=== PATIENT | male | born 1935 | race Caucasian/White ===

== ENCOUNTER 2017-11-13 07:17 | Inpatient (IN) | payer MEDICARE, BC ==
[2017-11-12 13:41] LABS: BASOPHILS # (AUTO) 0.1 (0.0-0.1); BASOPHILS % 0.6 % (0.0-1.0); EOSINOPHILS # (AUTO) 0.2 (0.0-0.4); EOSINOPHILS % 2.1 % (0.0-6.0); HEMATOCRIT 29.9 % (38.2-49.6); HEMOGLOBIN 9.8 g/dL (14.0-18.0); LYMPHOCYTES # (AUTO) 2.5 (1.0-3.2); LYMPHOCYTES % 25.6 % (18.0-39.1); MEAN CORPUSCULAR HEMOGLOBIN 29.7 pg (28-32); MEAN CORPUSCULAR HGB CONC 32.8 g/dL (31-35); MEAN CORPUSCULAR VOLUME 90.6 fL (81-99); MONOCYTES % 10.6 % (4.4-11.3); NEUTROPHILS # (AUTO) 5.9 (2.1-6.9); NEUTROPHILS % 60.8 % (38.7-80.0); PLATELET COUNT 304 x10e3/uL (140-360); RED CELL DISTRIBUTION WIDTH 14.9 % (11.7-14.4)
[2017-11-12 14:02] LABS: ALBUMIN 3.9 g/dL (3.5-5.0); ALBUMIN/GLOBULIN RATIO 1.1 (0.8-2.0); ANION GAP 16.8 mmol/L (8-16); CALCIUM 11.1 mg/dL (8.4-10.2); CREATININE, SERUM 4.97 mg/dL (0.72-1.25); POTASSIUM 4.8 mmol/L (3.5-5.1)
[2017-11-13] VITALS (14 sets, daily range): BP systolic 173–217; BP diastolic 78–101
[~2017-11-13] VITALS: Ht 175.3 cm; Wt 79.6 kg
[~2017-11-13 07:17] MED LIST: ATORVASTATIN CA20 MG PO; AURYXIA PO; CALCITRIOL0.25 MCG PO; CATAPRES-TTS 31 EA TD; CEFTIN250 MG PO; CLONIDINE HCL0.1 MG PO; COUMADIN2 MG PO; FUROSEMIDE40 MG PO; GABAPENTIN100 MG; HYDRALAZINE HCL25 MG PO; ISOSORBIDE MONO20 MG PO; LEVAQUIN250 MG PO; LEVOTHYROXINE50 MCG PO; METOPROLOL SUCC25 MG PO; METOPROLOL TART25 MG PO; MYBETRIQ PO; NIFEDICAL XL30 MG PO; NIFEDICAL XL60 MG PO; NIFEDIPINE ER30 M1 PO; PANTOPRAZOLE SO40 MG PO; POTASSIUM CHLO20 ME1 PO; PROZAC40 MG PO; RANEXA500 MG PO; RENA-VITE RX T1 EACH PO; RENADYL PO; TAMSULOSIN HCL0.4 MG PO; TORSEMIDE10 MG PO; ULTRAM50 MG PO; VITAMIN D1000 UNI1 PO; Z.0.ALDACTONE50 MG PO; Z.0.AMLODIPINE BESY1 PO; Z.0.CLONIDINE HCL0.2 PO; Z.0.FLOMAX0.4 MG PO; Z.0.IMDUR60 MG PO; Z.0.KLOR-CON M2020 M PO; Z.0.LASIX20 MG PO; Z.0.LASIX40 MG PO; Z.0.LIPITOR40 MG PO; Z.0.LISINOPRIL2.5 MG PO; Z.0.LISINOPRIL20 MG PO; [UNRECOGNIZED DRUG - OTHER] PO
[2017-11-13] MEDS ORDERED: SODIUM CHLORIDE 0.9% 1000ML 1,000 ML ONE ×2 (07:38→12:04)
[2017-11-13] MEDS ORDERED: DIPHENHYDRAMINE HCL 25 MG CAP ONE (07:51)
[2017-11-13] MEDS ORDERED: ALPRAZOLAM 0.5 MG TAB ONE (07:51)
[2017-11-13] MEDS ORDERED: IOPAMIDOL 370 MG/ML 200 ML INFUS..BTL INJ ONE (11:59)
[2017-11-13] MEDS ORDERED: LIDOCAINE HCL 2% LOCAL 20 ML VIAL ONE (11:59)
[2017-11-13] MEDS ORDERED: HEPARIN SOD/SOD CHLORIDE 2,000 ML ONE (11:59)
[2017-11-13] MEDS ORDERED: HYDRALAZINE HCL 20 MG/ML VIAL ONE ×2 (12:22→12:28)
[2017-11-13] MEDS ORDERED: FENTANYL CITRATE/PF 100MCG/2 ML INJ ONE (12:35)
[2017-11-13] MEDS ORDERED: MIDAZOLAM HCL 2 MG/2 ML VIAL ONE (12:35)
[2017-11-13] MEDS ORDERED: CLONIDINE HCL 0.3MG/24 HR PATCH TD SCH (15:15)
[2017-11-13] MEDS: CLONIDINE HCL 0.1 MG TAB PO SCH (15:19)
[2017-11-13] MEDS: HYDRALAZINE HCL 25 MG TAB PO SCH (15:19)
[2017-11-13] MEDS: NIFEDIPINE CR 30 MG TAB PO SCH (15:21)
[2017-11-13] MEDS ORDERED: WARFARIN SOD 2 MG TAB PO SCH (17:00)
[2017-11-13] MEDS: FUROSEMIDE 40 MG TAB PO SCH (17:00)
[2017-11-13] MEDS ORDERED: NIFEDIPINE 60 MG PO SCH (17:00)
[2017-11-13] MEDS: METOPROLOL TARTRATE 25 MG TAB PO SCH (17:03)
[2017-11-13] MEDS: RANOLAZINE 500 MG TABSR PO SCH (17:04)
[2017-11-13] MEDS ORDERED: ONDANSETRON HCL INJ 2 MG/ML VIAL IV PRN (17:30)
[2017-11-13 17:31] LABS: INR 0.97; PROTHROMBIN TIME 13.8 seconds (11.9-14.5)
[2017-11-13] MEDS ORDERED: FLUOXETINE HCL 40 MG PO SCH (21:00)
[2017-11-13] MEDS ORDERED: NON-FORMULARY MEDICATION (Atorvastatin Calcium (Lipitor) 40 MG) PO SCH (21:00)
[2017-11-13] MEDS: AMPICILLIN SOD 1 GM/NS 50ML 1 G in AMPICILLIN SOD 1 GM/NS 50ML 50 ML IV SCH (21:42)
[2017-11-13] MEDS: ATORVASTATIN 40 MG TAB PO SCH (21:42)
[2017-11-13] MEDS: TAMSULOSIN HCL 0.4 MG CAP PO SCH (21:42)
[2017-11-13] MEDS: FLUOXETINE HCL 20 MG CAP PO SCH (21:42)
--- NOTE | 2017-11-13 23:07 | History and Physical ---
HISTORY OF PRESENT ILLNESS: This patient came into the hospital today for a cardiac cath. He has history of chronic kidney disease. The patient underwent a cath by Dr. Dinero. The patient's initial Lexiscan was abnormal with systolic dysfunction and large inferior transmural scar. The patient's cardiac cath did not reveal any significant pathology, did have chronic coronary artery disease and diffuse plaquing present. No stenting was done. The patient also has a history of bladder cancer taken care of by Dr. Meredith, and today, the patient is readmitted for acute kidney injury and also for history of cancer, possible scope tomorrow. The patient has history of hypertension, history of depression, history of hypothyroidism, history of BPH and history of atrial fibrillation. MEDICATIONS: Atorvastatin 40 mg, fluoxetine 40 mg, Lasix 40 mg, hydralazine 25 mg, 100 mg twice a day, isosorbide mononitrate 20 mg, levothyroxine 50, metoprolol 25, nifedipine 60, pantoprazole 40 mg, potassium chloride 20, Ranexa 500 mg, tamsulosin 0.4 mg and warfarin 2 mg daily, 6 mg daily. The patient also has a history of vasectomy with radiation, again bladder surgery and cataract surgery too. FAMILY HISTORY: History of colon cancer in mother and also history of hypertension in father. PHYSICAL EXAMINATION GENERAL: The patient is alert and oriented x3. HEENT: Normocephalic, atraumatic. Pupils react to light and accommodation. The patient is lying supine status post cath. LUNGS: Clear to auscultation. ABDOMEN: Nontender, nondistended. EXTREMITIES: No cyanosis, clubbing or edema. LABORATORY DATA: Initial white count was 9.7. Hemoglobin was 9.8, hematocrit 29.9. Chemistries: Sodium 136, BUN 39, creatinine 4.8 and . Coags: PT 13.8 and INR of 0.97. ASSESSMENT: The patient with acute kidney injury. Nephrology consult is done. Also, history of bladder cancer. Scheduled for urological procedure tomorrow. Will continue to monitor the patient. Restart his home medications. Will hold his warfarin for possible procedure tomorrow. Further recommendations depending on clinical course. Have consulted Dr. Gandhi for his acute kidney injury. Will check his BMP tomorrow and also his creatinine tomorrow. Further recommendations depending on clinical course. Job#: [id number] SPIKE
[2017-11-14] VITALS (9 sets, daily range): BP systolic 121–176; BP diastolic 61–84
--- NOTE | 2017-11-14 00:36 | Consultation ---
DATE OF CONSULTATION: November 13, 2017 This is an 82-year-old male who was admitted for a cardiac cath and he underwent cath by Dr. Dinero, did not reveal any significant pathology. The patient has history of bladder cancer and is being followed by Dr. Meredith. The patient has multiple polyps. The patient will be having procedure tomorrow. While he is here, the patient was found to have worsening of his kidney function with a creatinine up to 4.8 with a baseline of 2.47 in August. MEDICATIONS: Fluoxetine, Lasix, atorvastatin, hydralazine, isosorbide, Protonix, nifedipine, metoprolol, levothyroxine, Ranexa, tamsulosin, and Coumadin. FAMILY HISTORY: Colon cancer in mother, hypertension in father. PAST MEDICAL HISTORY 1. Hypothyroidism. 2. Bladder cancer. 3. Chronic coronary artery disease. 4. Chronic kidney disease stage 3 with a creatinine of 2.47 baseline. 5. Hyperlipidemia. 6. Hypertension. 7. BPH. 8. UTI. PAST SURGICAL HISTORY 1. Vasectomy with radiation. 2. Bladder surgery. 3. Cataract surgery. PHYSICAL EXAMINATION GENERAL: Alert, following commands. HEENT: Pupils equal and reactive to light and accommodation. NECK: No JVD, no bruit. LUNGS: No rhonchi, no rales. HEART: Regular rate and rhythm. No S3, no S4. ABDOMEN: Nontender, nondistended. No hepatosplenomegaly. EXTREMITIES: No clubbing, cyanosis, or edema. NEUROLOGICAL: Cranial nerves II through XII are grossly intact. Sensation is intact. Motor is intact. VITAL SIGNS: Blood pressure 173/78. LABS: White count 9.7, hemoglobin 9.8, and hematocrit 29.9. Sodium 136, potassium 4.8, chloride 104, BUN 89, creatinine 4.97, and calcium 11.1. ASSESSMENT AND PLAN 1. Acute kidney failure with increased creatinine at 4.97, baseline of 2.47. We will check urinalysis for urinary tract infection. Patient has a history of frequent urinary tract infections. Also we will check urine eosinophil to rule out interstitial nephritis. To note that the patient is at a high risk for contrast nephropathy. He just had a cardiac catheterization done today with a creatinine of above 2 which makes him high risk. So, for now, I will continue intravenous fluids and we will check a urinalysis in a.m. 2. Bladder polyps. The patient is scheduled for procedure in a.m. 3. Hypertension. Patient is just restarted on his home medications. We will reevaluate, might increase medications. 4. Anemia of chronic disease. We will check urine protein electrophoresis. Job#: [id number]
[2017-11-14] MEDS: LEVOTHYROXINE SODIUM 50 MCG TAB PO SCH (05:12)
[2017-11-14 05:22] LABS: BASOPHILS % 0.4 % (0.0-1.0); EOSINOPHILS # (AUTO) 0.2 (0.0-0.4); EOSINOPHILS % 1.7 % (0.0-6.0); HEMATOCRIT 31.1 % (38.2-49.6); HEMOGLOBIN 10.1 g/dL (14.0-18.0); LYMPHOCYTES # (AUTO) 1.7 (1.0-3.2); LYMPHOCYTES % 15.7 % (18.0-39.1); MEAN CORPUSCULAR HEMOGLOBIN 29.4 pg (28-32); MEAN CORPUSCULAR HGB CONC 32.5 g/dL (31-35); MEAN CORPUSCULAR VOLUME 90.7 fL (81-99); MONOCYTES # (AUTO) 1.3 (0.2-0.8); MONOCYTES % 12.2 % (4.4-11.3); NEUTROPHILS # (AUTO) 7.5 (2.1-6.9); NEUTROPHILS % 69.6 % (38.7-80.0); PLATELET COUNT 282 x10e3/uL (140-360); RED BLOOD COUNT 3.43 x10e6/uL (4.3-5.7); RED CELL DISTRIBUTION WIDTH 14.9 % (11.7-14.4)
[2017-11-14 05:49] LABS: INR 0.98; PROTHROMBIN TIME 13.9 seconds (11.9-14.5)
[2017-11-14 05:54] LABS: ANION GAP 15.3 mmol/L (8-16); CALCIUM 10.4 mg/dL (8.4-10.2); CREATININE, SERUM 4.15 mg/dL (0.72-1.25); POTASSIUM 4.3 mmol/L (3.5-5.1)
[2017-11-14] MEDS ORDERED: IOPAMIDOL 610MG/1ML 300 MG/ML VIAL IV ONE (06:48)
[2017-11-14] MEDS: AMPICILLIN SOD 1 GM/NS 50ML 1 G in AMPICILLIN SOD 1 GM/NS 50ML 50 ML IV SCH ×3 (08:31→20:32)
--- NOTE | 2017-11-14 08:33 | Operative Report ---
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 PROCEDURES PERFORMED: 1. Left heart catheterization. 2. Selective coronary angiography. COMPLICATIONS: None. CONTRAST USED: 10 mL. RECOMMENDATIONS: Aggressive hydration for chronic kidney disease. The patient is cleared from the cardiac standpoint for any surgical procedure. Access obtained in the right femoral artery. A 6-Russian sheath was placed. Diagnostic coronary angiogram revealed 50% left main stenosis. Left anterior descending, circumflex, right coronary artery had moderate diffuse 30% to 50% stenosis without any critical stenosis or occlusions. Total 10 mL of contrast was used due to patient's advanced chronic kidney disease. Right groin sheath was removed under manual pressure. Patient was admitted to the hospital for IV hydration. Job#: [id number]
[2017-11-14] MEDS ORDERED: HYDRALAZINE HCL 20 MG/ML VIAL ONE (08:55)
[2017-11-14] MEDS ORDERED: POTASSIUM CHLORIDE 20 MEQ TAB CR PO SCH (09:00)
[2017-11-14] MEDS ORDERED: NON-FORMULARY MEDICATION (Vit B Cmplx 3/Fa/Vit C/Biotin (Rena-Vite Rx Tablet) 1 TAB) PO SCH (09:00)
[2017-11-14] MEDS: MYBETRIQ 50 MG PO SCH (09:00)
[2017-11-14] MEDS ORDERED: MYBETRIQ 50 MG PO SCH (09:00)
[2017-11-14] MEDS ORDERED: LEVOTHYROXINE SODIUM 50 MCG TAB PO SCH (09:00)
[2017-11-14] MEDS ORDERED: ISOSORBIDE MONONITRATE 20 MG TAB PO SCH (09:00)
[2017-11-14] MEDS ORDERED: CALCITRIOL 0.25 MCG CAP PO SCH (09:00)
[2017-11-14] MEDS ORDERED: TRAMADOL HCL 50 MG TAB PO PRN (10:15)
[2017-11-14] MEDS: FOLIC ACID/CYANOCOB/PYRIDOXINE TAB PO SCH (10:35)
[2017-11-14] MEDS: CALCITRIOL 0.25 MCG CAP PO SCH (10:35)
[2017-11-14] MEDS: RANOLAZINE 500 MG TABSR PO SCH ×2 (10:35→16:59)
[2017-11-14] MEDS: HYDRALAZINE HCL 25 MG TAB PO SCH (10:35)
[2017-11-14] MEDS: PANTOPRAZOLE SOD 40 MG TABEC PO SCH (10:35)
[2017-11-14] MEDS: ISOSORBIDE MONONITRATE 30 MG TAB CR PO SCH (10:36)
[2017-11-14] MEDS: METOPROLOL TARTRATE 25 MG TAB PO SCH (10:37)
[2017-11-14] MEDS: CLONIDINE HCL 0.1 MG TAB PO SCH ×2 (10:37→17:00)
[2017-11-14] MEDS: NIFEDIPINE CR 30 MG TAB PO SCH ×2 (10:38→17:01)
[2017-11-14] MEDS: CHOLECALCIFEROL 1,000 UNIT TAB PO SCH (10:38)
[2017-11-14] MEDS: FUROSEMIDE 40 MG TAB PO SCH ×2 (10:42→16:59)
[2017-11-14] MEDS ORDERED: PHENAZOPYRIDINE HCL 100 MG TAB PO SCH ×2 (13:00→21:00)
--- NOTE | 2017-11-14 13:09 | Progress Note ---
DATE: November 14, 2017 CARDIOLOGY PROGRESS NOTE SUBJECTIVE: Patient denies chest pain or shortness of breath. He underwent cystoscopy today by Dr. Meredith. OBJECTIVE VITAL SIGNS: Temperature 97.1 degrees, pulse 70, respiratory rate 21, blood pressure 176/84, oxygen saturation 96% on room air. GENERAL: Awake, alert, in no acute distress. LUNGS: Clear to auscultation bilaterally. No wheezes or crackles. CARDIOVASCULAR: Normal rate, regular rhythm. No murmur. Normal S1 and S2. ABDOMEN: Soft, nontender. EXTREMITIES: No edema. Right groin without hematoma or bruit. LABS: WBC 10.75, hemoglobin 10.1, hematocrit 31.1, platelets 282. Sodium 140, potassium 4.3, chloride 108, CO2 21, BUN 69, creatinine 4.15. INR 0.98. TELEMETRY: Normal sinus rhythm. IMPRESSION 1. Acute kidney injury. 2. Paroxysmal atrial fibrillation. 3. Chronic systolic heart failure. 4. Pulmonary hypertension. 5. Coronary artery disease with cardiac catheterization revealing moderate coronary artery disease without indication for revascularization. 6. Bladder tumors. RECOMMENDATIONS: Continue current cardiac medications. Patient is hypertensive. Change patient to carvedilol given continued hypertension. No RAFA/ARB given acute kidney injury. Continue current cardiac medications otherwise. Thank you for this consult. We will continue to follow. Job#: [id number] KAT
[2017-11-14] MEDS ORDERED: HYDRALAZINE HCL 25 MG TAB PO SCH (15:00)
[2017-11-14] MEDS: HYDRALAZINE HCL 100 MG TABLET PO SCH ×2 (15:51→20:32)
[2017-11-14] MEDS: CARVEDILOL 12.5 MG TAB PO SCH (17:00)
[2017-11-14] MEDS ORDERED: PROPOFOL IV EMULSION 10 MG/ML 20 ML VIAL ONE (17:42)
[2017-11-14] MEDS ORDERED: LIDOCAINE HCL 2% LOCAL INJ 5 ML SDV VIAL INJ ONE (17:42)
[2017-11-14] MEDS ORDERED: DESFLURANE 240 ML BTL INH ONE (17:42)
[2017-11-14] MEDS ORDERED: DEXAMETHASONE SOD PHOS INJ 4 MG/ML VIAL ONE (17:42)
[2017-11-14] MEDS: FLUOXETINE HCL 20 MG CAP PO SCH (20:32)
[2017-11-14] MEDS: ATORVASTATIN 40 MG TAB PO SCH (20:32)
[2017-11-14] MEDS: TAMSULOSIN HCL 0.4 MG CAP PO SCH (20:32)
[2017-11-15] VITALS (7 sets, daily range): BP systolic 117–176; BP diastolic 58–79
[2017-11-15 04:17] LABS: BILIRUBIN,URINE 1+ (NEGATIVE); CLARITY,URINE TURBID (CLEAR); COLOR,URINE AMBER (YELLOW); KETONES,URINE NEGATIVE (NEGATIVE); LEUKOCYTE ESTERASE ,URINE TRACE (NEGATIVE); NITRITE,URINE POSITIVE (NEGATIVE); PROTEIN,URINE DIPSTICK 3+ (NEGATIVE); URINE UROBILINOGEN 0.2 mg/dL (0.2 - 1)
[2017-11-15 04:18] LABS: BACTERIA,URINE MODERATE /HPF; RBC,URINE >50 /HPF (0-5)
[2017-11-15 04:40] LABS: CREATININE,URINE RANDOM 89.39 mg/dL (63-166); SODIUM,URINE 27 mmol/L; TOTAL PROTEIN, URINE 196.3 mg/dL (1-14)
[2017-11-15 04:51] LABS: EOSINOPHIL SMEAR,URINE NONE SEEN (NONE SEEN)
[2017-11-15 05:31] LABS: BASOPHILS % 0.2 % (0.0-1.0); EOSINOPHILS # (AUTO) 0.1 (0.0-0.4); EOSINOPHILS % 0.9 % (0.0-6.0); HEMATOCRIT 28.4 % (38.2-49.6); HEMOGLOBIN 9.4 g/dL (14.0-18.0); LYMPHOCYTES % 15.5 % (18.0-39.1); MEAN CORPUSCULAR HEMOGLOBIN 30.3 pg (28-32); MEAN CORPUSCULAR HGB CONC 33.1 g/dL (31-35); MEAN CORPUSCULAR VOLUME 91.6 fL (81-99); MONOCYTES # (AUTO) 1.5 (0.2-0.8); MONOCYTES % 12.2 % (4.4-11.3); NEUTROPHILS # (AUTO) 8.9 (2.1-6.9); NEUTROPHILS % 70.8 % (38.7-80.0); PLATELET COUNT 269 x10e3/uL (140-360); RED CELL DISTRIBUTION WIDTH 14.8 % (11.7-14.4)
[2017-11-15] MEDS: LEVOTHYROXINE SODIUM 50 MCG TAB PO SCH (05:48)
[2017-11-15 05:49] LABS: ANION GAP 14.9 mmol/L (8-16); CALCIUM 10.2 mg/dL (8.4-10.2); CREATININE, SERUM 4.47 mg/dL (0.72-1.25); POTASSIUM 4.9 mmol/L (3.5-5.1)
[2017-11-15] MEDS: HYDRALAZINE HCL 100 MG TABLET PO SCH ×3 (08:55→21:21)
[2017-11-15] MEDS: FOLIC ACID/CYANOCOB/PYRIDOXINE TAB PO SCH (08:55)
[2017-11-15] MEDS: RANOLAZINE 500 MG TABSR PO SCH ×2 (08:55→17:07)
[2017-11-15] MEDS: NIFEDIPINE CR 30 MG TAB PO SCH ×2 (08:55→17:07)
[2017-11-15] MEDS: PANTOPRAZOLE SOD 40 MG TABEC PO SCH (08:55)
[2017-11-15] MEDS: MYBETRIQ 50 MG PO SCH (08:55)
[2017-11-15] MEDS: CLONIDINE HCL 0.1 MG TAB PO SCH ×2 (08:55→17:07)
[2017-11-15] MEDS: CALCITRIOL 0.25 MCG CAP PO SCH (08:55)
[2017-11-15] MEDS: CHOLECALCIFEROL 1,000 UNIT TAB PO SCH (08:55)
[2017-11-15] MEDS: ISOSORBIDE MONONITRATE 30 MG TAB CR PO SCH (08:55)
[2017-11-15] MEDS: CARVEDILOL 12.5 MG TAB PO SCH ×2 (08:55→17:07)
[2017-11-15] MEDS: AMPICILLIN SOD 1 GM/NS 50ML 1 G in AMPICILLIN SOD 1 GM/NS 50ML 50 ML IV SCH ×2 (08:55→21:21)
--- NOTE | 2017-11-15 12:21 | Progress Note ---
DATE: November 15, 2017 CARDIOLOGY PROGRESS NOTE SUBJECTIVE: Patient denies chest pain or shortness of breath. OBJECTIVE VITAL SIGNS: Temperature 97.6 degrees, pulse 61, respiratory rate 18, blood pressure 149/70, oxygen saturation 96% on room air. GENERAL: Elderly man in no acute distress. Awake and alert. LUNGS: Clear to auscultation bilaterally. No wheezes or crackles. CARDIOVASCULAR: Normal rate, regular rhythm. No murmur. Normal S1 and S2. ABDOMEN: Soft, nontender. EXTREMITIES: No edema. CARDIAC MEDICATIONS 1. Hydralazine 100 mg p.o. t.i.d. 2. Carvedilol 12.5 mg p.o. b.i.d. 3. Nifedipine 60 mg p.o. b.i.d. 4. Isosorbide mononitrate 60 mg p.o. daily. 5. Ranolazine 500 mg p.o. b.i.d. 6. Clonidine 0.1 mg p.o. b.i.d. 7. Levothyroxine 50 mcg p.o. daily. 8. Atorvastatin 40 mg p.o. nightly. LABS: WBC 12.61, hemoglobin 9.4, hematocrit 28.4, platelets 269. Sodium 138, potassium 4.9, chloride 107, CO2 21, BUN 69, creatinine 4.47. TELEMETRY: Sinus bradycardia. IMPRESSION 1. Acute kidney injury. 2. Paroxysmal atrial fibrillation. 3. Chronic systolic heart failure. 4. Pulmonary hypertension. 5. Coronary artery disease with cardiac catheterization revealing moderate coronary artery disease without indication for revascularization. 6. Bladder tumors. RECOMMENDATIONS: Continue current cardiac medications. Patient's blood pressure is acceptable for age. Hold RAFA/ARB due to acute kidney injury. The patient will need to be restarted on warfarin once cleared from a procedural standpoint. Continue monitoring the patient on telemetry and monitor volume status closely. Thank you for this consult. We will continue to follow. Job#: [id number]
[2017-11-15 13:04] LABS: ANISOCYTOSIS SLIGHT; HYPOCHROMASIA SLIGHT; LYMPHOCYTES % (MANUAL) 13 % (19-48); MONOCYTES % (MANUAL) 13 % (3.4-9.0); NEUTROPHILS % (MANUAL) 74 % (40-74); PLATELET ESTIMATE ADEQUATE; PLATELET MORPHOLOGY COMMENT NORMAL
[2017-11-15] MEDS: ATORVASTATIN 40 MG TAB PO SCH (21:21)
[2017-11-15] MEDS: TAMSULOSIN HCL 0.4 MG CAP PO SCH (21:21)
[2017-11-15] MEDS: FLUOXETINE HCL 20 MG CAP PO SCH (21:21)
[2017-11-16 00:44] VITALS: BP 150/70
[2017-11-16 04:00] VITALS: BP 148/69
[2017-11-16 05:55] LABS: BASOPHILS % 0.4 % (0.0-1.0); EOSINOPHILS # (AUTO) 0.4 (0.0-0.4); EOSINOPHILS % 3.7 % (0.0-6.0); HEMATOCRIT 27.1 % (38.2-49.6); HEMOGLOBIN 8.9 g/dL (14.0-18.0); LYMPHOCYTES # (AUTO) 1.8 (1.0-3.2); LYMPHOCYTES % 17.6 % (18.0-39.1); MEAN CORPUSCULAR HEMOGLOBIN 29.7 pg (28-32); MEAN CORPUSCULAR HGB CONC 32.8 g/dL (31-35); MEAN CORPUSCULAR VOLUME 90.3 fL (81-99); MONOCYTES # (AUTO) 1.2 (0.2-0.8); MONOCYTES % 11.5 % (4.4-11.3); NEUTROPHILS # (AUTO) 6.7 (2.1-6.9); NEUTROPHILS % 66.5 % (38.7-80.0); PLATELET COUNT 244 x10e3/uL (140-360); RED CELL DISTRIBUTION WIDTH 14.9 % (11.7-14.4)
[2017-11-16] MEDS: LEVOTHYROXINE SODIUM 50 MCG TAB PO SCH (06:04)
[2017-11-16 06:18] LABS: ANION GAP 13.7 mmol/L (8-16); CALCIUM 10.8 mg/dL (8.4-10.2); CREATININE, SERUM 4.55 mg/dL (0.72-1.25); POTASSIUM 4.7 mmol/L (3.5-5.1)
[2017-11-16] MEDS: CARVEDILOL 12.5 MG TAB PO SCH ×2 (08:39→16:54)
[2017-11-16] MEDS: ISOSORBIDE MONONITRATE 30 MG TAB CR PO SCH (08:39)
[2017-11-16] MEDS: MYBETRIQ 50 MG PO SCH (08:39)
[2017-11-16] MEDS: CLONIDINE HCL 0.1 MG TAB PO SCH ×2 (08:39→16:54)
[2017-11-16] MEDS: FOLIC ACID/CYANOCOB/PYRIDOXINE TAB PO SCH (08:39)
[2017-11-16] MEDS: HYDRALAZINE HCL 100 MG TABLET PO SCH ×2 (08:39→16:05)
[2017-11-16] MEDS: RANOLAZINE 500 MG TABSR PO SCH ×2 (08:40→16:54)
[2017-11-16] MEDS: PANTOPRAZOLE SOD 40 MG TABEC PO SCH (08:40)
[2017-11-16] MEDS: NIFEDIPINE CR 30 MG TAB PO SCH ×2 (08:40→16:54)
[2017-11-16] MEDS: CALCITRIOL 0.25 MCG CAP PO SCH (08:40)
[2017-11-16] MEDS: CHOLECALCIFEROL 1,000 UNIT TAB PO SCH (08:40)
[2017-11-16] MEDS ORDERED: SODIUM CHLORIDE 0.9% 50ML 50 ML ONE (09:26)
[2017-11-16 09:29] VITALS: BP 139/65
[2017-11-16] MEDS: AMPICILLIN SOD 1 GM/NS 50ML 1 G in AMPICILLIN SOD 1 GM/NS 50ML 50 ML IV SCH (09:31)
[2017-11-16 10:32] VITALS: BP 139/65
[2017-11-16 12:29] VITALS: BP 147/69
[2017-11-16] MEDS ORDERED: CLONIDINE HCL 0.3MG/24 HR PATCH TD SCH (15:17)
[2017-11-16 15:58] VITALS: BP 142/65
--- NOTE | 2017-11-17 06:39 | Progress Note ---
DATE: November 16, 2017 CARDIOLOGY PROGRESS NOTE SUBJECTIVE: Patient is without any complaints this morning. He states that he feels well. Denies any chest pain, shortness of breath, or palpitation. CARDIOVASCULAR MEDICATIONS: Nifedipine 60 mg p.o. b.i.d., Ranexa 500 mg p.o. b.i.d., hydralazine 100 mg p.o. t.i.d., Coreg 12.5 mg p.o. b.i.d., isosorbide 60 mg p.o. daily, clonidine 0.1 mg p.o. b.i.d., and atorvastatin 40 mg p.o. h.s. LABS: WBC 10.08, hemoglobin 8.9, hematocrit 27.1, platelets 244, sodium 140, potassium 4.7, BUN 71, creatinine 4.55, GFR 12, calcium 10.8, glucose 100. OBJECTIVE VITAL SIGNS: Temperature 98.2, pulse 59, respiratory rate 16, blood pressure 139/65, oxygen saturation 96% on room air. GENERAL: Alert and oriented x3, resting comfortably in bed, does not appear to be in any acute distress. NECK: Supple. No JVD noted. CARDIOVASCULAR: Irregular rate and rhythm. A 3/6 systolic murmur present. Normal S1, S2. LUNGS: Diminished breath sounds in posterior lower lobes. Anterior clear. Otherwise, no wheezing, rhonchi, or crackles noted. ABDOMEN: Rounded, soft, nontender. LOWER EXTREMITIES: Trace edema bilaterally. TELEMETRY: Sinus bradycardia. IMPRESSION 1. Acute chronic renal failure. 2. Paroxysmal atrial fibrillation. 1. Systolic heart failure. 2. Pulmonary hypertension. 3. Coronary artery disease, status post recent left heart cath revealing moderate coronary artery disease without indication for vascularization. 4. Bladder tumor. 5. Urinary tract infection. RECOMMENDATIONS: Continue the above cardiac medications. Hold RAFA or ARB due to kidney failure. We will need to reinstate warfarin once cleared from a procedure standpoint. We will discuss with urology. Continue to maintain this patient on telemetry. Nephrology is managing volume. Dictated by: Isabell Feldman NP Job#: [id number] LPA
[2017-11-19 13:18] LABS: ALPHA 2 GLOBULIN URINE PEP 8.6 % (.)
--- OUTSIDE RECORDS SUMMARY | 2017-11-26 09:41 | XMS REPORT | Summary of Care ---
Author Author [facility] Organization [facility] Address Unknown Phone Unavailable Encounter DANIELA Gould(ELIO) [id number] Date(s): 10/18/16 - 11/16/16 [facility] [address] [place] [address]- Discharge Disposition: Home or Self Care Attending Physician: Chencho Hinson MD Referring Physician: Chencho Hinson MD Vital Signs Most recent to 1 2 oldest [Reference Range]: Height 177.8 cm (10/17/16 2:03 PM) Temperature Oral 97.6 DegF 98.3 DegF [96.4-99.1 DegF] (11/01/16 1:34 PM) (10/18/16 1:10 PM) Blood Pressure 145/59 mmHg 169/68 mmHg [90-140/60-90 mmHg] *HI* *HI* (11/01/16 1:34 PM) (10/18/16 1:10 PM) Respiratory Rate 17 BRMIN 18 BRMIN [14-20 BRMIN] (11/01/16 1:34 PM) (10/18/16 1:10 PM) Peripheral Pulse 47 bpm 65 bpm Rate [60-100 bpm] *LOW* (10/18/16 1:10 PM) (11/01/16 1:34 PM) Weight 83.182 kg (10/17/16 2:03 PM) Body Mass Index 26.31 m2 (10/17/16 2:03 PM) Problem List No data available for this section Allergies, Adverse Reactions, Alerts Substance Reaction Severity Status codeine Active sulfa drugs Active Medications Feraheme + sodium chloride 0.9% 100 mL INJ (for IV set) 100 mL 510 mg, 17 mL, 468 ml/hr, Infuse Over: 15 minutes, Route: IVPB, 117, ONCALL, Sta rt date: 10/18/16 11:00:00 CDT, Duration: 12 hr, Stop date: 10/18/16 22:59:00 CD T Notes: Same as: FerahemeNon-FormularyDO NOT administer undiluted IVP. This agen t is reserved for use by Nephrologists in patients who are unable to tolerate or al therapy. MEDICATION WASTE Product Size: 510 mgProduct Wasted: ___ mg Start Date: 10/18/16 Stop Date: 10/18/16 Status: Completed Feraheme + sodium chloride 0.9% 100 mL INJ (for IV set) 100 mL 510 mg, 17 mL, 468 ml/hr, Infuse Over: 15 minutes, Route: IVPB, 117, ONCALL, Sta rt date: 11/01/16 11:00:00 CDT, Duration: 12 hr, Stop date: 11/01/16 22:59:00 CD T Notes: Same as: FerahemeNon-FormularyDO NOT administer undiluted IVP. This agen t is reserved for use by Nephrologists in patients who are unable to tolerate or al therapy. MEDICATION WASTE Product Size: 510 mgProduct Wasted: ___ mg Start Date: 11/01/16 Stop Date: 11/01/16 Status: Completed Results No data available for this section Immunizations No data available for this section Procedures No data available for this section Social History Social History Type Response Smoking Status Former smoker; Ready to change: Yes; Concerns about tobacco use in household: No; Exposure to Tobacco Smoke None; Cigarette Smoking Last 365 Days No; Reg Smoking Cessation Counseling Yes Assessment and Plan No data available for this section
--- OUTSIDE RECORDS SUMMARY | 2017-11-26 09:41 | XMS REPORT | Continuity of Care Document ---
Author Author [facility] Address Unknown Phone Unavailable Problems Problem Status Onset Date Classification Date Reported Comments Source FERAHEME 510 MG / [id number] / [id number] / D Active 09/27/2016 [facility] Medications Medication Details Route Status Patient Instructions Ordering Provider Order Date Source Feraheme + sodium chloride 0.9% 100 mL INJ (for IV set) 100 mL 510 mg, 17 mL, 468 ml/hr, Infuse Over: 15 minutes, Route: IVPB, 117, ONCALL, Start date: 11/01/16 11:00:00 CDT, Duration: 12 hr, Stop date: 11/01/16 22:59:00 CDTNotes: Same as: Feraheme Non-Formulary DO NOT administer undiluted IVP. This agent is reserved for use by Nephrologists in patients who are unable to tolerate oral therapy. MEDICATION WASTE Product Size: 510 mg Product Wasted: ___ mg Inactive 11/01/2016 [facility] Feraheme + sodium chloride 0.9% 100 mL INJ (for IV set) 100 mL 510 mg, 17 mL, 468 ml/hr, Infuse Over: 15 minutes, Route: IVPB, 117, ONCALL, Start date: 10/18/16 11:00:00 CDT, Duration: 12 hr, Stop date: 10/18/16 22:59:00 CDTNotes: Same as: Feraheme Non-Formulary DO NOT administer undiluted IVP. This agent is reserved for use by Nephrologists in patients who are unable to tolerate oral therapy. MEDICATION WASTE Product Size: 510 mg Product Wasted: ___ mg Inactive 10/18/2016 [facility] Allergies, Adverse Reactions, Alerts Substance Category Reaction Severity Reaction type Status Date Reported Comments Source codeine Assertion Drug allergy Active [facility] sulfa drugs Assertion Drug allergy Active [facility] Immunizations Immunization Date Given Site Status Last Updated Comments Source Results Order Name Results Value Reference Range Date Interpretation Comments Source Vital Signs Vital Sign Value Date Comments Source Temperature Oral (F) 97.6 F 11/01/2016 [facility] Respitory Rate 17 11/01/2016 [facility] Heart Rate 47 11/01/2016 [facility] Systolic (mm Hg) 145 11/01/2016 [facility] Diastolic (mm Hg) 59 11/01/2016 [facility] Heart Rate 65 10/18/2016 [facility] Respitory Rate 18 10/18/2016 [facility] Temperature Oral (F) 98.3 F 10/18/2016 [facility] Systolic (mm Hg) 169 10/18/2016 [facility] Diastolic (mm Hg) 68 10/18/2016 [facility] Height 177.8 cm 10/17/2016 [facility] Weight 83.182 10/17/2016 [facility] BMI Calculated 26.31 10/17/2016 [facility] Encounters Location Location Details Encounter Type Encounter Number Reason For Visit Attending Provider ADM Date DC Date Status Source [facility] Recurring [id number] Chencho Hinson 10/18/2016 11/17/2016 [facility] Procedures Procedure Code Date Perfomer Comments Source
--- NOTE | 2017-12-23 00:49 | Discharge Summary ---
This patient came in after a cardiac cath, was found to have hematuria. Consult with Dr. Meredith was done. Patient's primary care is Dr. Bradford. Also, a consult with Dr. Parra was done for history of chronic kidney disease, stage 4, his BUN is 16 and creatinine 4.15. Hemoglobin was 10.1 and 31.1. Serial regular H and H's were done to recheck his anemia. Patient's coronary artery disease was stable. The patient did have a cystoscopy with Dr. Meredith. was identified. UA C and S was done. Acute kidney injury was monitored on a regular basis. The patient's coronary artery disease was stable. After cystoscopy, the patient was discharged home. We made sure patient went home with a Servin and the patient went home with Servin. FINAL DIAGNOSES 1. Acute kidney injury. 2. Hematuria. 3. Coronary artery disease. 4. Hypertension. Patient was asked to follow up with his primary care physician and Dr. Bradford, and also, with Dr. Meredith for Servin care, and the patient also had minimal amount of leukocytosis while in the hospital. FINAL DIAGNOSES 1. Leukocytosis. 2. Anemia. 3. Chronic kidney injury and acute kidney injury. 4. Hematuria. For further information, look in the chart. For medicines on discharge, look in the medical reconciliation sheet. MONIQUE BEJARANO MD Job#: [id number] CQ
--- NOTE | 2018-01-15 22:42 | Operative Report ---
DATE OF PROCEDURE: November 14, 2017 PREOPERATIVE DIAGNOSES 1. Recurrent bladder cancer. 2. Urethral stricture disease. 3. Gross hematuria. POSTOPERATIVE DIAGNOSES 1. Recurrent bladder cancer. 2. Urethral stricture disease. 3. Gross hematuria. OPERATIONS PERFORMED: 1. Cystourethroscopy with bilateral ureteral catheterization and retrograde ureteropyelography. (separate procedure performed for the gross hematuria). 2. Interpretation of retrograde ureteropyelography. 3. Cystourethroscopy with calibration and dilation of ureteral stricture (separate procedure performed for the urethral stricture). 4. Cystourethroscopy with transurethral resection of large patch, larger than 5 cm, of numerous recurrent bladder tumors (separate procedure performed for the recurrent bladder cancer). ANESTHESIA: General. COMPLICATIONS: None. CLINICAL SUMMARY: Fabien Arauz is an 82-year-old man with multiple complex medical problems. The patient underwent heart catheterization and is brought to the operating room following cardiac optimization in order to manage his recurrent tumors that were diagnosed on office cystoscopy. He is aware of the risks of bleeding, infection, injury to adjacent structures, his increased risk of any anesthetic. He understood all these risks and elected to proceed. OPERATIVE PROCEDURE IN DETAIL: Informed consent was verified. Fabien Arauz was properly identified, taken to the operating room, placed on the cystoscopy table in the supine position. Anesthesia was uneventfully begun. The patient was then carefully and gently re-positioned in the dorsal lithotomy position with all pressure points well padded. His genitalia were prepared and draped in usual sterile fashion. The 22.5-Djiboutian cystoscope sheath with the visual obturator in place was atraumatically inserted into the patient's urethra. It was guided down the unremarkable distal urethra through the bulbar region, where there was a stricture noted. We calibrated the stricture to approximately 16-Djiboutian in size and dilated to 22.5-Djiboutian in size. Thus, we passed the patient's sphincteric bed and entered through the patient's open prostate bed and into the patient's bladder, where panendoscopy revealed numerous bladder tumors encompassing well over 5 cm of diameter range. There were small diverticulum noted and trabeculations noted as well. An 8-Djiboutian catheter was used cannulate each ureter and retrograde ureteropyelograms were performed. Interpretation of retrograde ureteropyelography: Contrast was instilled in retrograde fashion bilaterally. J-hooking was noted, but there were no tumors no stones and no diverticula. Unobstructed drainage was observed bilaterally fluoroscopically. Cold-cup biopsy forceps were utilized to sample most of these tumors and partially excise them. We then utilized the Bugbee electrode to vaporize and treat all remaining visible cancer. We then utilized the Bugbee to carefully coagulate all points of resection. At the end of our resection, no visible tumor was noted. The patient's bladder was drained with Servin catheter and patient was uneventfully reversed from anesthesia and taken to recovery room in stable condition. There were no complications to the procedure. Patient tolerated the procedure well. Estimated blood loss was minimal. Explicit postoperative instructions were given and will follow the patient up indefinitely. Job#: [id number] CQ
[2018-02-12] MEDS ORDERED: HYDRALAZIN20 MG/1 ML IV (09:19)
[2018-02-12] MEDS ORDERED: MERREM500 MG IV (09:19)
[2018-02-12] MEDS ORDERED: ASPIR 8181 MG PO (09:19)
[2018-02-12] MEDS ORDERED: ACETAMINOPHEN325 M1 PO (09:19)
[2018-02-12] MEDS ORDERED: ALBUTEROL0.63 MG/3 IH (09:19)
[2018-02-12] MEDS ORDERED: LORAZEPAM2 MG/1 M1 IVP (09:19)
[2018-02-12] MEDS ORDERED: IPRATROPIU0.2 MG/1 M NEB (09:19)
[2018-02-12] MEDS ORDERED: NEPRO CARB STE237 ML PO (09:19)
[2018-02-12] MEDS ORDERED: ONDANSETRON2 MG/1 ML IV (09:19)
[2018-02-12] MEDS ORDERED: ARANESP100 MCG/0. SC (09:19)
[2018-02-12] MEDS ORDERED: LACTULOSE20 GM/30 M PO (09:19)
[2018-02-12] MEDS ORDERED: HEPARIN SO1000 UNIT/ IV (09:19)
== END 2017-11-16 18:38 | disposition home health service (06) | DRG 669 ==
LOC: CATH LAB 07:17 → PACU V 13:02 → IMCU 14:08 → OBSVTOIN 11-14 15:52 → MED/SURG 11-14 17:24
PROVIDERS: ADMIT Family Medicine; ATTEND Family Medicine
PROC: 0TBB8ZX Excision of Bladder, Via Natural or Artificial Opening Endoscopic, Diagnostic (ICD-10-PCS; 2017-11-14)
PROC: 0T788ZZ Dilation of Bilateral Ureters, Via Natural or Artificial Opening Endoscopic (ICD-10-PCS; 2017-11-14)
PROC: BT141ZZ Fluoroscopy of Kidneys, Ureters and Bladder using Low Osmolar Contrast (ICD-10-PCS; 2017-11-14)
PROC: 4A023N7 Measurement of Cardiac Sampling and Pressure, Left Heart, Percutaneous Approach (ICD-10-PCS; principal; 2017-11-14 11:00)
PROC: B2111ZZ Fluoroscopy of Multiple Coronary Arteries using Low Osmolar Contrast (ICD-10-PCS; 2017-11-14 11:00)
DX: N17.9 Acute kidney failure, unspecified (principal); I50.22 Chronic systolic (congestive) heart failure; N39.0 Urinary tract infection, site not specified; C67.9 Malignant neoplasm of bladder, unspecified; I12.9 Hypertensive chronic kidney disease with stage 1 through stage 4 chronic kidney disease, or unspecified chronic kidney disease; I11.0 Hypertensive heart disease with heart failure; I48.0 Paroxysmal atrial fibrillation; E11.22 Type 2 diabetes mellitus with diabetic chronic kidney disease; N18.3 Chronic kidney disease, stage 3 (moderate); I25.10 Atherosclerotic heart disease of native coronary artery without angina pectoris; E78.5 Hyperlipidemia, unspecified; D63.8 Anemia in other chronic diseases classified elsewhere; Z79.01 Long term (current) use of anticoagulants; I27.20 Pulmonary hypertension, unspecified; Z79.52 Long term (current) use of systemic steroids; N40.1 Benign prostatic hyperplasia with lower urinary tract symptoms; N39.498 Other specified urinary incontinence; E03.9 Hypothyroidism, unspecified; N32.3 Diverticulum of bladder; R60.0 Localized edema; Z79.4 Long term (current) use of insulin
CPT/HCPCS: 36415; 51701; 74420; 80048; 80053; 81001; 81015; 82570; 84156; 84165; 84166; 84300; 85025; 85610; 87086; 88305; 93454; C1766; C1769; G0378; J0290; J0360; J1100; J2001; J2250; J2405; J7030; Q9967

== ENCOUNTER 2017-11-25 16:59 | Emergency (ER) | payer MEDICARE, BC ==
[~2017-11-25] VITALS: Ht 175.3 cm; Wt 79.4 kg
[2017-11-25 18:31] LABS: CLARITY,URINE SL CLOUDY (CLEAR); COLOR,URINE YELLOW (YELLOW); LEUKOCYTE ESTERASE ,URINE 1+ (NEGATIVE)
[2017-11-25 18:32] LABS: BILIRUBIN,URINE NEGATIVE (NEGATIVE); KETONES,URINE NEGATIVE (NEGATIVE); NITRITE,URINE NEGATIVE (NEGATIVE); PROTEIN,URINE DIPSTICK 2+ (NEGATIVE); URINE UROBILINOGEN 0.2 mg/dL (0.2 - 1)
[2017-11-25 18:49] LABS: BACTERIA,URINE MANY /HPF; RBC,URINE >50 /HPF (0-5); WBC,URINE (MAN) >50 /HPF (0-5)
[2018-02-12] MEDS ORDERED: ALBUTEROL0.63 MG/3 IH (09:19)
[2018-02-12] MEDS ORDERED: MERREM500 MG IV (09:19)
[2018-02-12] MEDS ORDERED: LORAZEPAM2 MG/1 M1 IVP (09:19)
[2018-02-12] MEDS ORDERED: HEPARIN SO1000 UNIT/ IV (09:19)
[2018-02-12] MEDS ORDERED: LACTULOSE20 GM/30 M PO (09:19)
[2018-02-12] MEDS ORDERED: HYDRALAZIN20 MG/1 ML IV (09:19)
[2018-02-12] MEDS ORDERED: NEPRO CARB STE237 ML PO (09:19)
[2018-02-12] MEDS ORDERED: ACETAMINOPHEN325 M1 PO (09:19)
[2018-02-12] MEDS ORDERED: ONDANSETRON2 MG/1 ML IV (09:19)
[2018-02-12] MEDS ORDERED: IPRATROPIU0.2 MG/1 M NEB (09:19)
[2018-02-12] MEDS ORDERED: ARANESP100 MCG/0. SC (09:19)
[2018-02-12] MEDS ORDERED: ASPIR 8181 MG PO (09:19)
== END 2017-11-25 19:09 | disposition home or self-care (01) ==
LOC: ER 16:59
DX: R33.9 Retention of urine, unspecified (principal); N30.91 Cystitis, unspecified with hematuria; I10 Essential (primary) hypertension; I25.10 Atherosclerotic heart disease of native coronary artery without angina pectoris; N18.9 Chronic kidney disease, unspecified; E03.9 Hypothyroidism, unspecified; Z85.46 Personal history of malignant neoplasm of prostate
CPT/HCPCS: 81001; 87086; 87186; 99283

== ENCOUNTER 2017-12-21 23:26 | Emergency (ER) | payer MEDICARE, BC ==
[~2017-12-21] VITALS: Ht 175.3 cm; Wt 79.4 kg
[2017-12-21] MEDS ORDERED: LIDOCAINE JELLY 2% 10ML URO-JET TOP ONE (23:45)
[2017-12-22 00:25] LABS: BASOPHILS # (AUTO) 0.1 (0.0-0.1); BASOPHILS % 0.5 % (0.0-1.0); EOSINOPHILS # (AUTO) 0.3 (0.0-0.4); EOSINOPHILS % 2.2 % (0.0-6.0); HEMATOCRIT 27.4 % (38.2-49.6); HEMOGLOBIN 8.8 g/dL (14.0-18.0); LYMPHOCYTES # (AUTO) 1.8 (1.0-3.2); LYMPHOCYTES % 12.8 % (18.0-39.1); MEAN CORPUSCULAR HEMOGLOBIN 28.9 pg (28-32); MEAN CORPUSCULAR HGB CONC 32.1 g/dL (31-35); MEAN CORPUSCULAR VOLUME 90.1 fL (81-99); MONOCYTES # (AUTO) 1.3 (0.2-0.8); MONOCYTES % 8.9 % (4.4-11.3); NEUTROPHILS # (AUTO) 10.5 (2.1-6.9); NEUTROPHILS % 75.2 % (38.7-80.0); PLATELET COUNT 505 x10e3/uL (140-360); RED BLOOD COUNT 3.04 x10e6/uL (4.3-5.7); RED CELL DISTRIBUTION WIDTH 16.3 % (11.7-14.4)
[2017-12-22 00:38] LABS: BILIRUBIN,URINE NEGATIVE (NEGATIVE); CLARITY,URINE CLOUDY (CLEAR); COLOR,URINE YELLOW (YELLOW); KETONES,URINE NEGATIVE (NEGATIVE); LEUKOCYTE ESTERASE ,URINE 1+ (NEGATIVE); NITRITE,URINE NEGATIVE (NEGATIVE); PROTEIN,URINE DIPSTICK 2+ (NEGATIVE); URINE UROBILINOGEN 0.2 mg/dL (0.2 - 1)
[2017-12-22 00:39] LABS: ALBUMIN 3.4 g/dL (3.5-5.0); ANION GAP 14.5 mmol/L (8-16); CALCIUM 11.7 mg/dL (8.4-10.2); CREATININE, SERUM 3.08 mg/dL (0.72-1.25); POTASSIUM 4.5 mmol/L (3.5-5.1)
[2017-12-22 00:49] LABS: RBC,URINE 21-50 /HPF (0-5); WBC,URINE (MAN) >50 /HPF (0-5)
[2017-12-22 00:50] LABS: BACTERIA,URINE MODERATE /HPF; EPITHELIAL CELLS,URINE FEW /LPF; RENAL EPITHELIAL CELLS,URINE FEW; TRANSITIONAL EPI CELLS,URINE FEW
[2017-12-22 01:04] VITALS: BP 141/62
[2018-02-12] MEDS ORDERED: ARANESP100 MCG/0. SC (09:19)
[2018-02-12] MEDS ORDERED: ACETAMINOPHEN325 M1 PO (09:19)
[2018-02-12] MEDS ORDERED: MERREM500 MG IV (09:19)
[2018-02-12] MEDS ORDERED: LORAZEPAM2 MG/1 M1 IVP (09:19)
[2018-02-12] MEDS ORDERED: ALBUTEROL0.63 MG/3 IH (09:19)
[2018-02-12] MEDS ORDERED: HYDRALAZIN20 MG/1 ML IV (09:19)
[2018-02-12] MEDS ORDERED: LACTULOSE20 GM/30 M PO (09:19)
[2018-02-12] MEDS ORDERED: IPRATROPIU0.2 MG/1 M NEB (09:19)
[2018-02-12] MEDS ORDERED: ASPIR 8181 MG PO (09:19)
[2018-02-12] MEDS ORDERED: ONDANSETRON2 MG/1 ML IV (09:19)
[2018-02-12] MEDS ORDERED: HEPARIN SO1000 UNIT/ IV (09:19)
[2018-02-12] MEDS ORDERED: NEPRO CARB STE237 ML PO (09:19)
== END 2017-12-22 01:29 | disposition home or self-care (01) ==
LOC: ER 23:26
DX: R33.9 Retention of urine, unspecified (principal); N30.91 Cystitis, unspecified with hematuria; N40.1 Benign prostatic hyperplasia with lower urinary tract symptoms
CPT/HCPCS: 36415; 51700; 80053; 81001; 85025; 87086; 99283

== ENCOUNTER 2018-01-12 05:42 | Inpatient (IN) | payer MEDICARE, BC ==
[~2018-01-12] VITALS: Ht 177.8 cm; Wt 77.2 kg
[2018-01-12] VITALS (26 sets, daily range): BP systolic 119–156; BP diastolic 65–90
[2018-01-12] MEDS ORDERED: MEROPENEM 1GRAM 1 GM in SODIUM CHLORIDE 0.9% 100 ML 100 ML IV STA (06:12)
[2018-01-12] MEDS ORDERED: VANCOMYCIN 1GM/NS 250 ML 250 ML IV ONE (06:20)
[2018-01-12] MEDS ORDERED: MYRBETRIQ50 MG PO (06:29)
[2018-01-12] MEDS ORDERED: FLUOXETINE HCL40 MG PO (06:29)
[2018-01-12] MEDS ORDERED: CALCITRIOL0.5 MCG PO (06:29)
[2018-01-12] MEDS ORDERED: RENA-VITE TABL0.8 MG PO (06:29)
[2018-01-12] MEDS ORDERED: MEROPENEM 1 GM VIAL ONE (06:35)
[2018-01-12] MEDS ORDERED: SODIUM CHLORIDE 0.9% 100 ML ONE (06:35)
--- NOTE | 2018-01-12 06:37 | Diagnostic Imaging Report ---
EXAM: CHEST SINGLE (PORTABLE), AP 1 view INDICATION: Shortness of breath/respiratory distress COMPARISON: PA and lateral view of the chest April 13, 2012 FINDINGS: LINES/TUBES: None LUNGS: New bilateral airspace opacities. PLEURA: Small bilateral pleural effusions. HEART AND MEDIASTINUM: Cardiomegaly and central vascular congestion. BONES AND SOFT TISSUES: No acute findings. IMPRESSION: Findings most likely represent fluid overload with pulmonary edema and bilateral pleural effusions. Signed by: Dr. Nevin Berry M.D. on 01/12/2018 6:34 AM
[2018-01-12 06:40] LABS: ABG PH 7.35 (7.31-7.41)
[2018-01-12 06:41] LABS: ABG PCO2 27 mmHg (41-51); ABG PO2 90 mmHg (80-105)
[2018-01-12 06:44] LABS: ABG HCO3 15 mmol/L (23-28)
--- NOTE | 2018-01-12 06:51 | Diagnostic Imaging Report ---
EXAMINATION: Head CT HISTORY: Status post fall on Coumadin, head trauma, pain COMPARISON: None. TECHNIQUE: Multidetector axial images were obtained without contrast from the foramen magnum to the vertex . The images were reconstructed using brain and bone algorithms. Thin section brain images were reformatted into coronal and sagittal planes. Image quality: Motion/streaking artifact limits the evaluation of the skull base and posterior cranial fossa. Dose modulation, iterative reconstruction, and/or weight based adjustment of the mA/kV was utilized to reduce the radiation dose to as low as reasonably achievable. FINDINGS: Parenchyma: 1. Moderate confluent periventricular hypodensities, most likely nonspecific chronic microvascular ischemic changes. Tiny chronic lacunar infarcts in the bilateral caudate nuclei. 2. No mass or hemorrhage. No CT evidence of acute territorial vascular insult. Extra-axial spaces:No abnormal density. No extra-axial fluid collections Brain volume: Normal for age. Ventricles: No hydrocephalus or displacement. Arteries: No density suggestive of thrombus. Dural sinuses: No abnormal density. Extra-axial spaces: No abnormal density. Foramen magnum: No mass, Chiari malformation, or basilar invagination. Sella: No obvious mass. Paranasal/mastoid sinuses: Imaged portions unremarkable. Skull/Scalp: No lytic or blastic lesions. Right frontotemporal scalp swelling/hematoma without underlying fractures. IMPRESSION: 1. No acute post traumatic intracranial abnormalities, particularly no hemorrhage. 2. Right frontotemporal scalp swelling/hematoma without underlying fractures. 3. Mild chronic microvascular ischemic changes. Signed by: Dr. Crystal Moon M.D. on 01/12/2018 6:48 AM
[2018-01-12 06:58] LABS: BASOPHILS % 0.2 % (0.0-1.0); HEMATOCRIT 25.6 % (38.2-49.6); HEMOGLOBIN 8.3 g/dL (14.0-18.0); LYMPHOCYTES # (AUTO) 1.5 (1.0-3.2); LYMPHOCYTES % 6.3 % (18.0-39.1); MEAN CORPUSCULAR HEMOGLOBIN 30.1 pg (28-32); MEAN CORPUSCULAR HGB CONC 32.4 g/dL (31-35); MEAN CORPUSCULAR VOLUME 92.8 fL (81-99); MONOCYTES # (AUTO) 1.6 (0.2-0.8); MONOCYTES % 6.7 % (4.4-11.3); NEUTROPHILS # (AUTO) 19.9 (2.1-6.9); NEUTROPHILS % 86.1 % (38.7-80.0); PLATELET COUNT 448 x10e3/uL (140-360); RED BLOOD COUNT 2.76 x10e6/uL (4.3-5.7); RED CELL DISTRIBUTION WIDTH 16.6 % (11.7-14.4)
[2018-01-12] MEDS ORDERED: FUROSEMIDE INJ 10 MG/ML 4 ML VIAL IV ONE (07:00)
[2018-01-12 07:18] LABS: INR 4.39; PROTHROMBIN TIME 44.8 seconds (11.9-14.5)
[2018-01-12 07:20] LABS: ALBUMIN 3.2 g/dL (3.5-5.0); ALBUMIN/GLOBULIN RATIO 0.8 (0.8-2.0); ANION GAP 17.1 mmol/L (8-16); CALCIUM 10.7 mg/dL (8.4-10.2); CREATININE, SERUM 3.95 mg/dL (0.72-1.25); MAGNESIUM 2.3 MG/DL (1.3-2.1); PARTIAL THROMBOPLASTIN TIME 84.2 seconds (23.8-35.5); POTASSIUM 5.1 mmol/L (3.5-5.1)
[2018-01-12 07:28] LABS: CREATINE KINASE MB 1.5 ng/mL (0-5.0)
[2018-01-12 07:34] LABS: B-TYPE NATRIURETIC PEPTIDE2 3806.3 pg/mL (0-100)
[2018-01-12 08:06] LABS: CLARITY,URINE CLOUDY (CLEAR); COLOR,URINE BROWN (YELLOW); LEUKOCYTE ESTERASE ,URINE 1+ (NEGATIVE)
[2018-01-12 08:07] LABS: AMORPHOUS SEDIMENT,URINE FEW (FEW); BILIRUBIN,URINE NEGATIVE (NEGATIVE); EPITHELIAL CELLS,URINE FEW /LPF; KETONES,URINE NEGATIVE (NEGATIVE); NITRITE,URINE NEGATIVE (NEGATIVE); PROTEIN,URINE DIPSTICK 3+ (NEGATIVE); RBC,URINE >50 /HPF (0-5); URINE UROBILINOGEN 1 mg/dL (0.2 - 1)
[2018-01-12] MEDS ORDERED: PHYTONADIONE 10 MG/ML AMP SQ NR (08:45)
[2018-01-12] MEDS ORDERED: ASPIRIN 81 MG CHEW TAB PO ONE (08:45)
[2018-01-12] MEDS ORDERED: MEROPENEM 1GM 100 ML IV SCH (08:45)
[2018-01-12] MEDS ORDERED: VANCOMYCIN HCL 1GM/NS 250 ML BAG IV SCH (08:45)
--- OUTSIDE RECORDS SUMMARY | 2018-01-12 08:59 | XMS REPORT ---
Author Author [facility] Address Unknown Phone Unavailable Care Team Providers Care Vehicle Insurance Agent Name Role Phone Maikel PIZARRO Unavailable Unavailable Problems This patient has no known problems. Allergies, Adverse Reactions, Alerts This patient has no known allergies or adverse reactions. Medications This patient has no known medications. Results Test Description Test Time Test Comments Text Results Atomic Results Result Comments CT BRAIN WO 2018-01-12 06:45:00 [facility] [address] [address] Patient Name: EMILIO TA MR #: [id number] : 1935 Age/Sex: 82/M Req #: [id number] Adm Physician: Ordered by: HALI PIZARRO MD Report #: [id number] Location: ER Room/Bed: Procedure: [id number] CT/CT BRAIN WO Exam Date: Exam Time: REPORT STATUS: Signed EXAMINATION: Head CT HISTORY: Status post fall on Coumadin, head trauma, pain COMPARISON: None. TECHNIQUE: Multidetector axial images were obtained without contrast from the foramen magnum to the vertex . The images were reconstructed using brain and bone algorithms. Thin section brain images were reformatted into coronal and sagittal planes. Image quality: Motion/streaking artifact limits the evaluation of the skull base and posterior cranial fossa. Dose modulation, iterative reconstruction, and/or weight based adjustment of the mA/kV was utilized to reduce the radiation dose to as low as reasonably achievable. FINDINGS: Parenchyma: 1. Moderate confluent periventricular hypodensities, most likely nonspecific chronic microvascular ischemic changes. Tiny chronic lacunar infarcts in the bilateral caudate nuclei. 2. No mass or hemorrhage. No CT evidence of acute territorial vascular insult. Extra-axial spaces:No abnormal density. No extra-axial fluid collections Brain volume: Normal for age. Ventricles: No hydrocephalus or displacement. Arteries: No density suggestive of thrombus. Dural sinuses: No abnormal density. Extra-axial spaces: No abnormal density. Foramen magnum: No mass, Chiari malformation, or basilar invagination. Sella: No obvious mass. Paranasal/mastoid sinuses: Imaged portions unremarkable. Skull/Scalp: No lytic or blastic lesions. Right frontotemporal scalp swelling/hematoma without underlying fractures. IMPRESSION: 1. No acute post traumatic intracranial abnormalities, particularly no hemorrhage. 2. Right frontotemporal scalp swelling/hematoma without underlying fractures. 3. Mild chronic microvascular ischemic changes. Signed by: Dr. Benedicto Moon M.D. on 01/12/2018 6:48 AM Dictated By: BENEDICTO MOON MD 7 Transcribed By: SUSSY on 01/12/18647 COPY TO: HALI PIZARRO MD CHEST SINGLE (PORTABLE) 2018-01-12 06:33:00 [address] [place] [address] Patient Name: EMILIO TA MR #: [id number] : 1935 Age/Sex: 82/M Req #: [id number] Adm Physician: Ordered by: HALI PIZARRO MD Report #: [id number] Location: ER Room/Bed: Procedure: [id number] DX/CHEST SINGLE (PORTABLE) Exam Date: 01/12/18 Exam Time: 0615 REPORT STATUS: Signed EXAM: CHEST SINGLE (PORTABLE), AP 1 view INDICATION: Shortness of breath/respiratory distress COMPARISON: PA and lateral view of the chest April 13, 2012 FINDINGS: LINES/TUBES: None LUNGS: New bilateral airspace opacities. PLEURA: Small bilateral pleural effusions. HEART AND MEDIASTINUM: Cardiomegaly and central vascular congestion. BONES AND SOFT TISSUES: No acute findings. IMPRESSION: Findings most likely represent fluid overload with pulmonary edema and bilateral pleural effusions. Signed by: Dr. Michelle Berry M.D. on 01/12/2018 6:34 AM Dictated By: MICHELLE BERRY MD 3 Transcribed By: SUSSY on 01/12/18633 COPY TO: HALI PIZARRO MD
[2018-01-12] MEDS: MEROPENEM 1 GM VIAL IV SCH ×2 (09:00→20:38)
[2018-01-12] MEDS: VANCOMYCIN 1GM/NS 250 ML 250 ML IV SCH (09:30)
[2018-01-12] MEDS: IPRATROPIUM BROMIDE 0.02% 2.5 ML NEB NEB SCH ×2 (10:47→19:00)
[2018-01-12] MEDS: ALBUTEROL SULF 0.083% NEB SOLN 3 ML NEB NEB SCH ×3 (10:47→19:00)
--- NOTE | 2018-01-12 14:48 | History and Physical ---
REASON FOR ADMISSION: This patient came into the hospital for shortness of breath. HISTORY OF PRESENTING ILLNESS: This is Mr. Fabien Arauz with a history of congestive heart failure, seen by retail parts professional, Dr. Dinero, was in usual state of health until 3 days prior to admission when the patient started with some shortness of breath. Had called 911 yesterday. EMS came and checked out the patient. The patient's stats were good. No hospital recommendation was done. This morning, the patient got up from bed and fell and had a right parietal hematoma. The patient comes in and was admitted for congestive heart failure and leukocytosis and sepsis. PAST MEDICAL HISTORY: Chronic kidney disease stage 4, hypertension, congestive heart failure, pulmonary hypertension, history of prostate cancer with history of brachytherapy in the past. Patient also has an additional history of hyperlipidemia, history of depression, history of hypothyroidism, history of incontinence, and benign prostatic hypertrophy. MEDICATIONS: The patient takes; 1. Atorvastatin 40 mg. 2. Calcitriol 0.5 mg daily. 3. Clonidine 0.3 mg patch every 7 days. 4. Fluoxetine 40 mg. 5. Hydralazine 25 mg/100 mg twice a day. 6. Isosorbide dinitrate 20 mg daily. 7. Levothyroxine 50 mcg daily. 8. Metoprolol tartrate 25 mg daily. 9. Myrbetriq 50 mg daily. 10. Nifedipine 60 mg. 11. Pantoprazole 40 mg. 12. Ranexa 500 mg. 13. Tamsulosin 0.5 mg. 14. Warfarin 2 mg daily. SURGICAL HISTORY: Includes history of brachytherapy for the prostate cancer, cataract surgeries. FAMILY HISTORY: Colon cancer in mother and coronary artery disease in father. REVIEW OF SYSTEMS: Positive for shortness of breath. Negative for chest pain. No nausea, vomiting, diarrhea. No constipation or rectal bleeding. No hematochezia. Positive for urinary symptoms. Patient has been seen recently by Dr. Meredith. PHYSICAL EXAMINATION VITAL SIGNS: Temperature is normal, blood pressure is 144/75, respirations of 18, pulse is 77, and pulse oximetry 100% on BiPAP. HEENT: Normocephalic. On BiPAP right now. Traumatic hematoma present in the right parietal area. LUNGS: Decreased air entry in the lung bases. Positive for crackles in low bases. ABDOMEN: Nontender, nondistended. EXTREMITIES: Positive for 1 to 2+ edema. LABORATORY VALUES: White count is 23,000, hemoglobin of 8.3, hematocrit of 25.6, neutrophil count 86.1, left shift present. Patient's initial lactic acid was 22. Sodium was 133, CO2 of 15, BUN 51, and creatinine of 3.95. BNP was 3806. Coags; INR was 4.39. IMAGING STUDIES: Chest x-ray consistent with pulmonary edema and bilateral effusions. Brain CT done for the fall shows moderate confluent periventricular hypodensities. No mass or hemorrhage is seen and mild right frontotemporal scalp swelling and hematoma. ASSESSMENT 1. Congestive heart failure. 2. Sepsis, probably urinary in nature since the patient has urinary symptoms. 3. Chronic kidney disease, stage 4. 4. Fall with scalp hematoma. 5. Sepsis. 6. Hyperlipidemia. 7. Coronary artery disease. 8. Hypertension. PLAN: To consult Dr. Dinero. Echocardiogram will be done. Coumadin will be stopped for Coumadin toxicity. CBC will be done and repeated tomorrow. Patient has been started on Merrem and also IV Lasix has been started. Patient also has metabolic acidosis. We will consult Dr. Gandhi for chronic kidney disease. Further recommendations as per clinical course. We will continue to monitor the patient and we will keep the patient in IMCU with telemonitoring and check PT/INRs on daily basis. Job#: [id number] JESUS
[2018-01-12 15:15] LABS: CREATINE KINASE MB 1.4 ng/mL (0-5.0)
[2018-01-12] MEDS: RANOLAZINE 500 MG TABSR PO SCH (17:00)
[2018-01-12] MEDS: METOPROLOL TARTRATE 25 MG TAB PO SCH (17:00)
[2018-01-12] MEDS: CLONIDINE HCL 0.1 MG TAB PO SCH (17:00)
[2018-01-12] MEDS: NIFEDIPINE CR 30 MG TAB PO SCH (17:00)
[2018-01-12] MEDS: HYDRALAZINE HCL 25 MG TAB PO SCH (17:00)
[2018-01-12] MEDS: TAMSULOSIN HCL 0.4 MG CAP PO SCH (20:38)
[2018-01-12] MEDS: ATORVASTATIN 40 MG TAB PO SCH (20:38)
[2018-01-12] MEDS: FUROSEMIDE INJ 10 MG/ML 4 ML VIAL IV SCH ×2 (20:45→20:47)
--- NOTE | 2018-01-12 21:25 | Consultation ---
DATE OF CONSULTATION: January 12, 2018 CARDIOLOGY CONSULTATION REASON FOR CONSULTATION: Congestive heart failure. HISTORY OF PRESENT ILLNESS: This is an 82-year-old man with a history of chronic systolic congestive heart failure, chronic kidney disease, pulmonary hypertension, coronary artery disease, bladder tumor, and urinary obstruction, who presented to the emergency department with progressive worsening shortness of breath. Prior to arrival, the patient fell and hit his right frontal area with bruising. Denies any syncope. He states that he has been severely short of breath for the last few days, has been progressively worsening, marked severe in intensity, no other exacerbating or relieving factors. Upon arrival here, the patient was noted to have pulmonary edema with bilateral pleural effusions, received Lasix and was started on BiPAP. REVIEW OF SYSTEMS: Twelve-point review of systems was conducted and is negative other than stated above in the HPI. PAST MEDICAL HISTORY: Congestive heart failure, chronic kidney disease, hypertension, pulmonary hypertension, prostate cancer, hyperlipidemia, nonobstructive coronary artery disease. PAST SURGICAL HISTORY: Cataract and prostate surgeries. FAMILY HISTORY: No premature coronary artery disease or sudden cardiac . SOCIAL HISTORY: No current illicit drug use, alcohol use, tobacco use. ALLERGIES: CODEINE. MEDICATIONS: See medication reconciliation form. PHYSICAL EXAMINATION VITAL SIGNS: Temperature is 98.5, heart rate is 88, respirations are 18, blood pressure is 131/74, oxygen saturation is 100% on BiPAP. GENERAL: Elderly man, mild respiratory distress. HEENT: Head is normocephalic. NECK: There is no jugular venous distention. CARDIOVASCULAR: Irregularly irregular. LUNGS: Decreased breath sounds with scattered rales at bases. ABDOMEN: Soft, nontender. EXTREMITIES: No edema. VASCULAR: Diminished pulses. NEUROLOGIC: No focal deficits noted. LABORATORY DATA: Reviewed. Notable for white blood cell count of 23, hemoglobin 8.3, platelets 448,000. Creatinine of 3.95. BNP of 3806. INR is 4.39. CHEST X-RAY: Pulmonary edema with bilateral pleural effusions. IMPRESSIONS 1. [id number]-[id number] systolic congestive heart failure. 2. Atrial fibrillation. 3. Shortness of breath. 4. Pneumonia. 5. Leukocytosis. 6. Nonobstructive coronary artery disease. RECOMMENDATIONS: Patient appears volume overloaded and short of breath on BiPAP. Continue noninvasive positive pressure ventilation. Start Lasix 40 mg IV q.12 h for diuresis. Otherwise, continue all current cardiovascular medications. Hold warfarin as his INR is supratherapeutic. Thank you for the consultation. Will follow along with you. Job#: [id number] CQ
--- NOTE | 2018-01-12 21:53 | Consultation ---
DATE OF CONSULTATION: January 12, 2018 INITIAL VISIT SERVICE: Urology. ATTENDING: Dr. Abbasi HISTORY OF PRESENT ILLNESS: This is an 82-year-old patient, who is known to our office. Has been treated by Dr. Trung Meredith. 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 He did have a recent urinary retention about 3 weeks ago and had a placement of a Servin catheter. Presently, he was admitted with congestive heart failure. He does have a chronic kidney disease stage 4, has a history of multiple medical problems. PAST MEDICAL HISTORY: Significant for 1. Chronic kidney disease. 2. Hypertension. 3. Congestive heart failure. 4. Pulmonary hypertension. 5. Prostate cancer. 6. Bladder cancer. 7. Hyperlipidemia. 8. Depression. 9. Hypothyroidism. 10. History of urinary incontinence. 11. History of symptoms of BPH. MEDICATIONS: See MAR. SURGICAL HISTORY: Including 1. Brachytherapy for prostate cancer. 2. Cataract surgery. 3. Resection of bladder tumor. FAMILY HISTORY: Colon cancer in mother. Coronary disease in his father. REVIEW OF SYSTEMS: Twelve systems reviewed. Shortness of breath significant for the present time, also history of incontinence. All other 12 systems negative. PHYSICAL EXAM GENERAL: Patient is presently in the ICU. VITALS: Blood pressure 140/75, respirations 18, pulse 80, temperature normal. HEENT: Head is symmetric. Eyes normal. NECK: No JVD. CHEST: Minimal crepitation. HEART: Regular. ABDOMEN: Soft. EXTERNAL GENITALIA: No testicular masses. Servin catheter in place. Urine somewhat bloody. RECTAL: Induration. LOWER EXTREMITIES: Positive for +1 edema. LABORATORY DATA: Hemoglobin 8.3, white count 23.15. Electrolytes, sodium 133, potassium 5.1, chloride 106, bicarb 15. Creatinine 3.95, BUN 51. Urinalysis red blood cells over 50, white blood cells 6 to 8. Lactic acide in the blood 22. IMPRESSIONS 1. Congestive heart failure. 2. 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 3. Urinary retention. 4. Renal failure, acute on chronic. 5. History of prostate cancer. 6. Hypertension. 7. Pulmonary hypertension. 8. Depression. 9. Hypothyroidism. 10. Leukocytosis. 11. Possible sepsis. PLAN: Recommend to keep the Servin catheter in place. Will follow with you. Job#: [id number] CQ
[2018-01-13] VITALS (56 sets, daily range): BP systolic 116–157; BP diastolic 58–99
[2018-01-13] MEDS: ALBUTEROL SULF 0.083% NEB SOLN 3 ML NEB NEB SCH ×7 (03:00→23:45)
[2018-01-13 04:38] LABS: BASOPHILS % 0.2 % (0.0-1.0); EOSINOPHILS # (AUTO) 0.1 (0.0-0.4); EOSINOPHILS % 0.4 % (0.0-6.0); HEMATOCRIT 21.2 % (38.2-49.6); LYMPHOCYTES # (AUTO) 1.2 (1.0-3.2); LYMPHOCYTES % 8.5 % (18.0-39.1); MEAN CORPUSCULAR HEMOGLOBIN 29.9 pg (28-32); MEAN CORPUSCULAR HGB CONC 32.5 g/dL (31-35); MEAN CORPUSCULAR VOLUME 91.8 fL (81-99); MONOCYTES # (AUTO) 1.8 (0.2-0.8); NEUTROPHILS # (AUTO) 10.7 (2.1-6.9); NEUTROPHILS % 77.3 % (38.7-80.0); PLATELET COUNT 334 x10e3/uL (140-360); RED BLOOD COUNT 2.31 x10e6/uL (4.3-5.7); RED CELL DISTRIBUTION WIDTH 16.2 % (11.7-14.4)
[2018-01-13 04:40] LABS: HEMOGLOBIN 6.9 g/dL (14.0-18.0)
[2018-01-13 04:51] LABS: INR 3.32
[2018-01-13 05:04] LABS: CREATINE KINASE MB 0.8 ng/mL (0-5.0)
[2018-01-13] MEDS: LEVOTHYROXINE SODIUM 50 MCG TAB PO SCH (06:21)
[2018-01-13 06:34] LABS: ALBUMIN 2.5 g/dL (3.5-5.0); ALBUMIN/GLOBULIN RATIO 0.7 (0.8-2.0); ANION GAP 14.3 mmol/L (8-16); CALCIUM 9.6 mg/dL (8.4-10.2); CREATININE, SERUM 3.87 mg/dL (0.72-1.25); MAGNESIUM 2.2 MG/DL (1.3-2.1); POTASSIUM 4.3 mmol/L (3.5-5.1)
[2018-01-13] MEDS ORDERED: SODIUM CHLORIDE 0.9% 250ML 250 ML IV ONE (07:00)
[2018-01-13] MEDS ORDERED: FUROSEMIDE INJ 10 MG/ML 2 ML VIAL IV NR (07:15)
[2018-01-13] MEDS ORDERED: FUROSEMIDE INJ 10 MG/ML 2 ML VIAL IV PRN (07:30)
[2018-01-13 07:34] LABS: % IRON SATURATION 9 % (15-50); IRON 14 ug/dL (65-175); TOTAL IRON BINDING CAPACITY 164 ug/dL (261-478); TRANSFERRIN 117 mg/dL (174-364)
--- NOTE | 2018-01-13 07:42 | Progress Note ---
DATE: January 13, 2018 SUBJECTIVE: The patient was admitted yesterday for congestive heart failure, sepsis, probably urosepsis, and also questionable pneumonia. The patient also has warfarin use coagulopathy with warfarin toxicity. The patient currently does not complain of any chest pain. Feels better. Rested easily. Shortness of breath is better with the BiPAP machine. PHYSICAL EXAMINATION VITAL SIGNS: Pulse is 70, blood pressure 132/70, temperature not recorded. Ins and outs: Patient had urine output of 600 mL yesterday. HEENT: Normocephalic. Atraumatic. Pupils react to light and accommodation. LUNGS: Decreased air entry throughout the lung laguerre. Positive for crackles at bases but decreased. ABDOMEN: Nontender, nondistended. EXTREMITIES: 1+ edema. LABORATORY VALUES: Today's white count has come down from 23.15 to 13.84. Hemoglobin from 8.3 to 6.9, down. Neutrophil count is down to 77.3. Chemistries: Sodium 137, potassium 4.3, chloride 110, BUN 57, creatinine 3.87. Glucose is 90. Magnesium is 2.2. Coags: PT is 36, and INR is 3.32. ASSESSMENT 1. Congestive heart failure. Patient is on adequate diuresis. Echocardiogram has been ordered. Cardiology consult with Dr. Dinero has been ordered. 2. Chronic kidney disease. Continue monitoring the patient's electrolytes. The patient has a consult with Dr. Gandhi, who is going to see the patient. 3. Coumadin toxicity, on hold. The INR is 3.32. Will continue monitoring. 4. Patient has anemia. We will go ahead and transfuse him 2 units of PRBCs with 20 of Lasix in between. The vitals will be monitored very carefully. 5. Sepsis. The patient is on Merrem and also on vancomycin, which we will continue monitoring. The patient is on vancomycin q.24 h. and Merrem q.12 h. Will continue monitoring it and do a trough at this time. Further recommendations per the clinical course. The patient seems to be stable. We will keep him in the ICU and continue monitoring his vitals and also his electrolytes and H and H. Medicines have been reviewed and continued. Job#: [id number]
[2018-01-13] MEDS: IPRATROPIUM BROMIDE 0.02% 2.5 ML NEB NEB SCH ×5 (08:15→23:45)
[2018-01-13] MEDS: NIFEDIPINE CR 30 MG TAB PO SCH ×2 (09:00→18:20)
[2018-01-13] MEDS ORDERED: ISOSORBIDE MONONITRATE 20 MG TAB PO SCH (09:00)
[2018-01-13] MEDS: HYDRALAZINE HCL 25 MG TAB PO SCH ×2 (09:00→18:20)
[2018-01-13] MEDS: FLUOXETINE HCL 20 MG CAP PO SCH (09:00)
[2018-01-13] MEDS: ISOSORBIDE MONONITRATE 30 MG TAB CR PO SCH (09:00)
[2018-01-13] MEDS: CALCITRIOL 0.25 MCG CAP PO SCH (09:00)
[2018-01-13] MEDS: METOPROLOL TARTRATE 25 MG TAB PO SCH ×2 (09:00→17:00)
[2018-01-13] MEDS: CLONIDINE HCL 0.1 MG TAB PO SCH ×2 (09:00→17:00)
[2018-01-13] MEDS: MEROPENEM 1 GM VIAL IV SCH (09:00)
[2018-01-13] MEDS: PANTOPRAZOLE SOD 40 MG TABEC PO SCH (09:00)
[2018-01-13] MEDS: FUROSEMIDE INJ 10 MG/ML 4 ML VIAL IV SCH ×2 (09:00→22:30)
[2018-01-13] MEDS: RANOLAZINE 500 MG TABSR PO SCH ×2 (09:30→17:00)
[2018-01-13] MEDS: VANCOMYCIN 1GM/NS 250 ML 250 ML IV SCH (09:30)
[2018-01-13] MEDS ORDERED: SODIUM CHLORIDE 0.9% 250ML 250 ML ONE ×2 (11:57→16:31)
[2018-01-13] MEDS ORDERED: MEROPENEM 500MG 500 MG in SODIUM CHLORIDE 0.9% 50ML 50 ML IV SCH (16:45)
--- NOTE | 2018-01-13 17:02 | Progress Note ---
DATE: CARDIOLOGY PROGRESS NOTE SUBJECTIVE: Patient feels somewhat better, still short of breath on BiPAP, no chest pain. OBJECTIVE VITAL SIGNS: Heart rate 83, respiratory rate is 26, oxygen saturation 96% on BiPAP with 15 liters oxygen. GENERALLY: Elderly man, mildly short of breath. CARDIOVASCULAR: Regular rate. No murmurs. LUNGS: Diminished breath sounds with scattered rales. ABDOMEN: Soft, nontender. EXTREMITIES: No edema. Laboratory data were reviewed. Notable for a hemoglobin of 6.9, creatinine of 3.87. IMPRESSION 1. Xmtpo-[id number] systolic congestive heart failure. 2. Atrial fibrillation. 3. Shortness of breath. 4. Pneumonia. 5. Pleural effusions. 6. Leukocytosis. 7. Nonobstructive coronary artery disease. RECOMMENDATIONS: Patient appears volume-overloaded with hypoxemia and need for noninvasive positive pressure ventilation. Continue Lasix intravenously for adequate urine output. Continue to monitor creatinine and daily electrolytes as well. Will avoid nephrotoxic agents for his heart failure regimen. Otherwise, continue all current cardiovascular medications and continue to closely monitor on telemetry. Blood transfusions have been initiated, and please give Lasix after each infusion. Job#: [id number] EV
--- NOTE | 2018-01-13 18:02 | Consultation ---
DATE OF CONSULTATION: January 13, 2018 RENAL CONSULTATION ADMITTING PHYSICIAN: Dr. Perkins. REASON FOR CONSULTATION: Chronic kidney disease. HISTORY OF PRESENT ILLNESS: An 82-year-old male with a history of stage 4 chronic kidney disease and congestive heart failure was in his usual state of health until approximately 3 days prior to admission when he developed worsening shortness of breath. Patient called EMS. However, he was initially not brought to the hospital. He fell on the morning of admission and was more short of breath and was brought to [facility]. Patient was noted to have pulmonary edema, bilateral pleural effusions, was given Lasix, placed on BiPAP, and Cardiology, Urology and Nephrology consultations were called. REVIEW OF SYSTEMS: As above. Positive shortness of breath. No fevers, no chills. Positive cough. All other systems negative. PAST MEDICAL HISTORY 1. Chronic kidney disease stage 4. 2. Hypertension. 3. Congestive heart failure. 4. Pulmonary hypertension. 5. History of prostate cancer with brachytherapy in the past. 6. Dyslipidemia. 7. Depression. 8. Hypothyroidism. 9. BPH. PAST SURGICAL HISTORY 1. Brachytherapy for prostate cancer. 2. Cataract surgeries. SOCIAL HISTORY: No tobacco, no alcohol, no IV drugs. FAMILY HISTORY: Noncontributory. ALLERGIES: CODEINE. CURRENT MEDICATIONS: See list. Includes furosemide 40 mg IV q.12, Protonix, calcitriol, meropenem, hydralazine. VITAS: Blood pressure 149/81, pulse 79, respiratory rate 23, sat 99%. PHYSICAL EXAMINATION GENERAL: No apparent distress. HEENT: BiPAP in place. No scleral icterus. No papilledema. NECK: Supple. Difficult to assess jugular venous pressure. No lymphadenopathy. CHEST: Decreased breath sounds at bases anteriorly bilaterally. CARDIOVASCULAR: Regular rhythm. No murmurs or rubs. ABDOMEN: Soft. Positive bowel sounds. No tenderness, no rebound. EXTREMITIES: 1+ pitting edema. SKIN: Warm. CHEST X-RAY: Fluid overload. Pulmonary edema with bilateral pleural effusions. HEAD COMPUTED TOMOGRAPHY: No acute posttraumatic intracranial abnormalities. No hemorrhage. Right frontotemporal scalp swelling, hematoma. LABS: White count 13.8, hemoglobin 6.9, hematocrit 21.2, platelets 334. Sodium 137, potassium 4.3, chloride 110, CO2 17, BUN 57, creatinine 3.87, magnesium 2.2, iron saturation 9. Troponin 0.349. Albumin 2.5. Urine: Greater than 50 RBCs, 6-10 WBCs. ASSESSMENT AND PLAN 1. Stage 4 chronic kidney disease. Patient is approximately at baseline. Will not do any further workup. 2. Volume overload. Continue with IV Lasix, will increase dose. 3. Pneumonia. Will dose all medications for stage 4 chronic kidney disease. 4. Anemia. The patient received 1 unit of packed RBC. May consider Epogen although patient does have history of bladder cancer. 5. Urinary retention. Servin catheter placed. Urology following. 6. Sepsis. Dose all antibiotics accordingly. Job#: [id number] EV
[2018-01-13] MEDS ORDERED: SODIUM CHLORIDE 0.9% 100 ML ONE (21:28)
[2018-01-13] MEDS: ATORVASTATIN 40 MG TAB PO SCH (21:35)
[2018-01-13] MEDS: MEROPENEM 500MG 500 MG in SODIUM CHLORIDE 0.9% 50ML 50 ML IV SCH (21:35)
[2018-01-13] MEDS: TAMSULOSIN HCL 0.4 MG CAP PO SCH (21:35)
[2018-01-14] VITALS (81 sets, daily range): BP systolic 113–166; BP diastolic 71–105
[2018-01-14] MEDS: ALBUTEROL SULF 0.083% NEB SOLN 3 ML NEB NEB SCH ×6 (03:00→23:05)
[2018-01-14 05:00] LABS: BASOPHILS # (AUTO) 0.1 (0.0-0.1); BASOPHILS % 0.4 % (0.0-1.0); EOSINOPHILS # (AUTO) 0.2 (0.0-0.4); EOSINOPHILS % 1.6 % (0.0-6.0); HEMATOCRIT 27.4 % (38.2-49.6); LYMPHOCYTES # (AUTO) 1.1 (1.0-3.2); LYMPHOCYTES % 9.8 % (18.0-39.1); MEAN CORPUSCULAR HEMOGLOBIN 29.6 pg (28-32); MEAN CORPUSCULAR HGB CONC 32.8 g/dL (31-35); MEAN CORPUSCULAR VOLUME 90.1 fL (81-99); MONOCYTES # (AUTO) 1.5 (0.2-0.8); MONOCYTES % 13.3 % (4.4-11.3); NEUTROPHILS # (AUTO) 8.6 (2.1-6.9); NEUTROPHILS % 74.4 % (38.7-80.0); PLATELET COUNT 370 x10e3/uL (140-360); RED BLOOD COUNT 3.04 x10e6/uL (4.3-5.7); RED CELL DISTRIBUTION WIDTH 15.9 % (11.7-14.4)
[2018-01-14] MEDS: FUROSEMIDE INJ 10 MG/ML 4 ML VIAL IV SCH ×3 (05:54→21:19)
[2018-01-14] MEDS: LEVOTHYROXINE SODIUM 50 MCG TAB PO SCH (05:54)
[2018-01-14 06:19] LABS: ALBUMIN 2.5 g/dL (3.5-5.0); ALBUMIN/GLOBULIN RATIO 0.7 (0.8-2.0); CALCIUM 9.7 mg/dL (8.4-10.2); CREATININE, SERUM 3.55 mg/dL (0.72-1.25)
[2018-01-14] MEDS: IPRATROPIUM BROMIDE 0.02% 2.5 ML NEB NEB SCH ×3 (07:05→18:45)
[2018-01-14 07:12] LABS: CHOL/HDL RATIO 3.1 (3.9-4.7)
[2018-01-14] MEDS ORDERED: VANCOMYCIN 1GM/NS 250 ML 250 ML IV SCH (07:45)
[2018-01-14 07:50] LABS: HYPOCHROMASIA SLIGHT; LYMPHOCYTES % (MANUAL) 8 % (19-48); MONOCYTES % (MANUAL) 9 % (3.4-9.0); NEUTROPHILS % (MANUAL) 83 % (40-74); RBC MORPHOLOGY COMMENT ABNORMAL
[2018-01-14 07:51] LABS: ANISOCYTOSIS MODERATE; PLATELET ESTIMATE ADEQUATE; PLATELET MORPHOLOGY COMMENT NORMAL; SMUDGE CELLS FEW
--- NOTE | 2018-01-14 07:52 | Progress Note ---
DATE: January 14, 2018 SUBJECTIVE: The patient is currently doing better, however, using BiPAP throughout the whole night. Did remove the BiPAP yesterday for eating and did destat to the 80s. The patient is back on BiPAP and slept with BiPAP the whole night. MEDICATIONS: Reviewed. OBJECTIVE VITAL SIGNS: Temperature is 98.4, pulse is 88, blood pressure 148/76, pulse oximetry 100% on BiPAP. HEENT: Normocephalic, atraumatic. Pupils reactive to light and accommodation. CVS: S1, S2 normal. No S3 present. LUNGS: Positive for crackles on the lower lung bases. ABDOMEN: Nontender, nondistended. EXTREMITIES: No clubbing, no cyanosis, no edema. LABS: Today's labs--white count was 11,000, hemoglobin of 9.0, hematocrit of 27.4, status post transfusion, platelets were 370,000. Chemistry showed sodium of 130, potassium 4.0. Total protein 6, albumin is 2.5 and iron was low. TOXICOLOGY: Vancomycin trough was 18.5. MICROBIOLOGY: The patient's urine culture grew ESBL. ASSESSMENT 1. Sepsis, secondary to Extended-spectrum beta-lactamase. The patient will be on isolation. Will continue the patient on antibiotics. He is on vancomycin and also Merrem, which we can discontinue the vancomycin. 2. Atrial fibrillation. Continue with anticoagulation. 3. Shortness of breath and acute respiratory failure. The patient will be on bilevel positive airway pressure and we will continue with that. 4. Pleural effusion. Adequate diuresis has been achieved. 5. Leukocytosis and coronary artery disease. Will continue with beta blockade and home medications Further recommendations per clinical course. The patient also has chronic kidney disease which Dr. Gandhi is following. We will discontinue the vancomycin at this time. Job#: [id number]
[2018-01-14] MEDS: PANTOPRAZOLE SOD 40 MG TABEC PO SCH (08:40)
[2018-01-14] MEDS ORDERED: MEROPENEM 500 MG VIAL ONE (08:42)
[2018-01-14] MEDS: ISOSORBIDE MONONITRATE 30 MG TAB CR PO SCH (09:00)
[2018-01-14] MEDS: RANOLAZINE 500 MG TABSR PO SCH ×2 (09:00→16:45)
[2018-01-14] MEDS: HYDRALAZINE HCL 25 MG TAB PO SCH ×2 (09:00→16:43)
[2018-01-14] MEDS: METOPROLOL TARTRATE 25 MG TAB PO SCH ×2 (09:00→16:44)
[2018-01-14] MEDS: CALCITRIOL 0.25 MCG CAP PO SCH (09:00)
[2018-01-14] MEDS: FLUOXETINE HCL 20 MG CAP PO SCH (09:00)
[2018-01-14] MEDS: MEROPENEM 500MG 500 MG in SODIUM CHLORIDE 0.9% 50ML 50 ML IV SCH ×2 (09:00→21:17)
[2018-01-14] MEDS: NIFEDIPINE CR 30 MG TAB PO SCH ×2 (09:30→16:45)
[2018-01-14] MEDS: CLONIDINE HCL 0.1 MG TAB PO SCH ×2 (09:30→16:43)
[2018-01-14] MEDS ORDERED: ACETAMINOPHEN 325 MG TAB ONE ×2 (12:48→16:43)
[2018-01-14] MEDS: ACETAMINOPHEN 325 MG TAB PO PRN ×2 (12:50→16:46)
--- NOTE | 2018-01-14 16:39 | Progress Note ---
DATE: January 14, 2018 CARDIOLOGY PROGRESS NOTE SUBJECTIVE: Patient overall feels much better. Reports right-sided chest pain. Shortness of breath improved. OBJECTIVE VITAL SIGNS: Temperature is 98.9. Heart rate is 102. Respirations are 16. Blood pressure is 157/87. Oxygen saturation is 98% on 15 L nasal cannula. GENERAL: He is a chronically ill-appearing, elderly man lying comfortably in bed. Mild respiratory distress. CARDIOVASCULAR: Irregularly irregular. LUNGS: Diminished breath sounds at bilateral bases. ABDOMEN: Soft, nontender. EXTREMITIES: Trace edema. CARDIOVASCULAR MEDICATIONS: Reviewed. LABORATORY DATA: Reviewed. Hemoglobin 9. Creatinine 3.55. IMPRESSION 1. Vllwb-zh-bccpwtt systolic congestive heart failure. 2. Atrial fibrillation. 3. Shortness of breath. 4. Bacteremia. 5. Sepsis. 6. Chronic kidney disease. RECOMMENDATIONS: Continue diuresis with Lasix 40 mg IV q.8 h. Continue to monitor urine outputs and daily creatinines. Otherwise, continue current cardiovascular medications. Holding anticoagulation given a hemoglobin of 6.9. Please continue to monitor closely on telemetry. Antibiotics per primary team. Job#: [id number]
[2018-01-14] MEDS: ATORVASTATIN 40 MG TAB PO SCH (21:18)
[2018-01-14] MEDS: TAMSULOSIN HCL 0.4 MG CAP PO SCH (21:18)
[2018-01-15] VITALS (45 sets, daily range): BP systolic 95–141; BP diastolic 60–98
[2018-01-15] MEDS: ALBUTEROL SULF 0.083% NEB SOLN 3 ML NEB NEB SCH ×6 (02:30→23:25)
[2018-01-15] MEDS: IPRATROPIUM BROMIDE 0.02% 2.5 ML NEB NEB SCH ×4 (02:30→19:15)
[2018-01-15 05:00] LABS: BASOPHILS % 0.3 % (0.0-1.0); EOSINOPHILS # (AUTO) 0.7 (0.0-0.4); EOSINOPHILS % 5.4 % (0.0-6.0); HEMOGLOBIN 9.1 g/dL (14.0-18.0); LYMPHOCYTES # (AUTO) 1.3 (1.0-3.2); MEAN CORPUSCULAR HEMOGLOBIN 29.3 pg (28-32); MEAN CORPUSCULAR HGB CONC 32.5 g/dL (31-35); MONOCYTES # (AUTO) 1.7 (0.2-0.8); MONOCYTES % 14.2 % (4.4-11.3); NEUTROPHILS # (AUTO) 8.4 (2.1-6.9); NEUTROPHILS % 68.8 % (38.7-80.0); PLATELET COUNT 408 x10e3/uL (140-360); RED BLOOD COUNT 3.11 x10e6/uL (4.3-5.7); RED CELL DISTRIBUTION WIDTH 15.7 % (11.7-14.4)
[2018-01-15] MEDS: FUROSEMIDE INJ 10 MG/ML 4 ML VIAL IV SCH ×3 (05:17→21:43)
[2018-01-15] MEDS: LEVOTHYROXINE SODIUM 50 MCG TAB PO SCH (05:17)
[2018-01-15 05:27] LABS: ANION GAP 14.1 mmol/L (8-16); CALCIUM 9.8 mg/dL (8.4-10.2); CREATININE, SERUM 3.21 mg/dL (0.72-1.25); POTASSIUM 4.1 mmol/L (3.5-5.1)
--- NOTE | 2018-01-15 07:07 | Progress Note ---
DATE: Patient came in with sepsis, leukocytosis, congestive heart failure. Patient is currently doing well. Adequately diuresed. No complaints. Fever is down. Complains of some fatigue and debility and lack of strength. Otherwise, no problems. OBJECTIVE VITAL SIGNS: Temperature not recorded, pulse of 68, respiratory rate of 20, blood pressure 112/60, pulse ox 96% on 2 L. The patient uses the BiPAP at nighttime. GENERAL: Alert and oriented times 3 on 2 L of nasal cannula. CV: S1 and S2 normal. Regular rate and rhythm. ABDOMEN: Nontender and nondistended. EXTREMITIES: No clubbing. No cyanosis. No edema. MEDICATIONS: Currently, the patient is on: 1. Merrem q.12 h. 2. Vancomycin has been discontinued. 3. The patient is also on 40 mg of Lasix IV q.8 h. 4. Levothyroxine. 5. Atorvastatin. 6. Tamsulosin. 7. Nifedipine. 8. Ranexa. 9. Hydralazine. 10. Isosorbide. 11. Fluoxetine. 12. Pantoprazole for DVT prophylaxis. LABORATORY VALUES: Microbiology showed ESBL sensitive to Merrem. Today's white count is 12.21, hemoglobin of 9.1, hematocrit of 28, status post transfusion. Platelet count is 408,000. Chemistry: Sodium of 137, BUN 16, creatinine of 3.21. ASSESSMENT 1. Sepsis: Currently, on Merrem. 2. Urinary tract infection: Currently, on Merrem with vancomycin being held. 3. Congestive heart failure: Continue on intravenous diuresis and monitoring his creatinine levels. 4. Chronic kidney disease, 4: Dr. Gandhi is on the case. On bicarb. Continue to monitor the patient. Will transfer him to [facility]. Continue monitoring his level. Further recommendations per clinical course. The patient has also been ordered for physical therapy and occupational therapy to get him out of bed, and possibly will switch him to p.o. Lasix tomorrow, and possible discharge in 1-2 days. Job#: [id number] HI
[2018-01-15] MEDS: PANTOPRAZOLE SOD 40 MG TABEC PO SCH (08:03)
[2018-01-15 08:27] LABS: EOSINOPHILS % (MANUAL) 5 % (0-7); LYMPHOCYTES % (MANUAL) 11 % (19-48); MONOCYTES % (MANUAL) 16 % (3.4-9.0); NEUTROPHILS % (MANUAL) 68 % (40-74)
[2018-01-15 08:28] LABS: ANISOCYTOSIS SLIGHT; HOWELL-JOLLY BODIES FEW; HYPOCHROMASIA MODERATE; PLATELET ESTIMATE ADEQUATE; PLATELET MORPHOLOGY COMMENT NORMAL; POIKILOCYTOSIS SLIGHT; RBC MORPHOLOGY COMMENT ABNORMAL
[2018-01-15] MEDS: MEROPENEM 500MG 500 MG in SODIUM CHLORIDE 0.9% 50ML 50 ML IV SCH ×2 (09:00→21:43)
[2018-01-15] MEDS: HYDRALAZINE HCL 25 MG TAB PO SCH ×2 (09:02→16:54)
[2018-01-15] MEDS: CLONIDINE HCL 0.1 MG TAB PO SCH ×2 (09:03→16:54)
[2018-01-15] MEDS: ISOSORBIDE MONONITRATE 30 MG TAB CR PO SCH (09:03)
[2018-01-15] MEDS: NIFEDIPINE CR 30 MG TAB PO SCH ×2 (09:08→16:55)
[2018-01-15] MEDS: METOPROLOL TARTRATE 25 MG TAB PO SCH ×2 (09:08→16:54)
[2018-01-15] MEDS: FLUOXETINE HCL 20 MG CAP PO SCH (09:08)
[2018-01-15] MEDS: CALCITRIOL 0.25 MCG CAP PO SCH (09:09)
[2018-01-15] MEDS: RANOLAZINE 500 MG TABSR PO SCH ×2 (09:09→16:55)
--- NOTE | 2018-01-15 17:11 | Progress Note ---
DATE: CARDIOLOGY PROGRESS NOTE SUBJECTIVE: Patient feels better. His shortness of breath has improved. Chest pain also has improved. OBJECTIVE VITAL SIGNS: Temperature is 99, heart rate is 72, respirations are 24, blood pressure is 133/65, oxygen saturation is 98% on 8 liters nasal cannula. GENERALLY: He is an elderly man lying comfortably in bed. Mild respiratory distress. LUNGS: Diminished breath sounds in bilateral bases. CARDIOVASCULAR: Irregularly irregular. ABDOMEN: Soft, nontender. EXTREMITIES: Trace edema. Cardiovascular medications reviewed. Urine output is 2.2 liters overnight. Laboratory and imaging data reviewed. IMPRESSION 1. Wlcul-ja-[id number] systolic congestive heart failure. 2. Atrial fibrillation. 3. Shortness of breath. 4. Bacteremia. 5. Sepsis. 6. Chronic kidney disease. RECOMMENDATIONS: Continue intravenous Lasix for diuresis and continue to monitor urinary outputs. Patient has improved respiratory status. Continue to avoid anticoagulation given recent acute anemia of a hemoglobin of 6.9. Continue to closely monitor on telemetry. Otherwise he is hemodynamically stable from a cardiovascular standpoint. Job#: [id number] EV
[2018-01-15] MEDS: TAMSULOSIN HCL 0.4 MG CAP PO SCH (20:52)
[2018-01-15] MEDS: ATORVASTATIN 40 MG TAB PO SCH (20:52)
[2018-01-15] MEDS ORDERED: SODIUM CHLORIDE 0.9% 250ML 250 ML ONE (21:09)
[2018-01-16] VITALS (15 sets, daily range): BP systolic 112–151; BP diastolic 60–96
[2018-01-16] MEDS: ALBUTEROL SULF 0.083% NEB SOLN 3 ML NEB NEB SCH ×6 (02:30→23:20)
[2018-01-16] MEDS: IPRATROPIUM BROMIDE 0.02% 2.5 ML NEB NEB SCH ×5 (02:30→23:50)
[2018-01-16 05:25] LABS: BASOPHILS % 0.3 % (0.0-1.0); EOSINOPHILS # (AUTO) 0.6 (0.0-0.4); EOSINOPHILS % 5.1 % (0.0-6.0); HEMATOCRIT 28.4 % (38.2-49.6); HEMOGLOBIN 9.2 g/dL (14.0-18.0); LYMPHOCYTES # (AUTO) 1.8 (1.0-3.2); LYMPHOCYTES % 15.1 % (18.0-39.1); MEAN CORPUSCULAR HEMOGLOBIN 29.1 pg (28-32); MEAN CORPUSCULAR HGB CONC 32.4 g/dL (31-35); MEAN CORPUSCULAR VOLUME 89.9 fL (81-99); MONOCYTES # (AUTO) 1.6 (0.2-0.8); NEUTROPHILS # (AUTO) 7.9 (2.1-6.9); NEUTROPHILS % 66.2 % (38.7-80.0); PLATELET COUNT 441 x10e3/uL (140-360); RED BLOOD COUNT 3.16 x10e6/uL (4.3-5.7); RED CELL DISTRIBUTION WIDTH 15.3 % (11.7-14.4)
[2018-01-16] MEDS: FUROSEMIDE INJ 10 MG/ML 4 ML VIAL IV SCH ×3 (05:49→21:39)
[2018-01-16] MEDS: LEVOTHYROXINE SODIUM 50 MCG TAB PO SCH (05:49)
[2018-01-16 05:51] LABS: ANION GAP 12.9 mmol/L (8-16); CALCIUM 9.9 mg/dL (8.4-10.2); CREATININE, SERUM 3.25 mg/dL (0.72-1.25); POTASSIUM 3.9 mmol/L (3.5-5.1)
[2018-01-16] MEDS ORDERED: MORPHINE SULFATE INJ 4 MG/ML INJ IV PRN (06:00)
--- NOTE | 2018-01-16 08:06 | Progress Note ---
DATE: SUBJECTIVE: The patient is in bed IMCU 198. The patient currently is doing fine. Did have some chest pain in the morning today. Medical Receptionist Assistant was called and morphine 4 mg was given. The patient's chest pain was described as right-sided and upon movement. Currently, the patient is chest pain free. The patient did some physical therapy yesterday with PT and also had bowel movement yesterday. OBJECTIVE VITAL SIGNS: The patient's temperature is 98.5, pulse of 80, blood pressure is 141/71, pulse oximetry 95% on 2 L of nasal cannula. The patient used BiPAP all night yesterday and just now transferred to 2 L nasal cannula. HEENT: Normocephalic, atraumatic. The patient does have a right-sided parietal hematoma healing and also decompression. Pupils react to light and accommodation. CV: S1 normal. Irregular rate and rhythm. Positive for ejection systolic murmur. LUNGS: Clear to auscultation except for crackles at the lung bases. ABDOMEN: Nontender, nondistended. EXTREMITIES: No clubbing. Trace edema present. LABORATORY VALUES: Today, white count is 11.96, hemoglobin of 9.2, hematocrit of 28.4, platelet count is 441,000. MICROBIOLOGY: Gram-stain did also grow some yeast species, otherwise negative. The patient also had some E. coli ESBL for which he is on Merrem for. ASSESSMENT 1. Sepsis: The patient is on Merrem. 2. Urinary tract infection: Also, urine culture is growing some yeast. We will go ahead and give some Diflucan. 3. Atrial fibrillation: Continue with current medication. The patient also has uemcf-zd-bbmjpua systolic congestive heart failure. Continue with diuresis. 4. Chronic kidney disease: We will continue monitoring his kidneys. 5. Leukocytosis, better: We will add Diflucan. Continue monitoring the patient. The patient is being followed by Dr. Gandhi and also by Dr. Bowles for cardiology. Further recommendation per clinical course. Job#: [id number]
[2018-01-16] MEDS: MEROPENEM 500MG 500 MG in SODIUM CHLORIDE 0.9% 50ML 50 ML IV SCH ×2 (08:50→21:39)
[2018-01-16] MEDS: FLUOXETINE HCL 20 MG CAP PO SCH (08:50)
[2018-01-16] MEDS: PANTOPRAZOLE SOD 40 MG TABEC PO SCH (08:50)
[2018-01-16] MEDS: CALCITRIOL 0.25 MCG CAP PO SCH (08:51)
[2018-01-16] MEDS: ACETAMINOPHEN 325 MG TAB PO PRN (08:51)
[2018-01-16] MEDS: ISOSORBIDE MONONITRATE 30 MG TAB CR PO SCH (09:05)
[2018-01-16] MEDS: RANOLAZINE 500 MG TABSR PO SCH ×2 (09:05→19:01)
[2018-01-16] MEDS: CLONIDINE HCL 0.1 MG TAB PO SCH ×2 (09:05→19:00)
[2018-01-16] MEDS: FLUCONAZOLE 100 MG/NS 50 ML 50 ML IV SCH (09:05)
[2018-01-16] MEDS: METOPROLOL TARTRATE 25 MG TAB PO SCH ×2 (09:05→19:01)
[2018-01-16] MEDS: HYDRALAZINE HCL 25 MG TAB PO SCH ×2 (09:05→19:00)
[2018-01-16] MEDS: NIFEDIPINE CR 30 MG TAB PO SCH ×2 (09:05→19:01)
--- NOTE | 2018-01-16 14:57 | Progress Note ---
DATE: CARDIOLOGY PROGRESS NOTE SUBJECTIVE: Patient overall feels much better, denies any chest pain, and his shortness of breath has improved. OBJECTIVE VITAL SIGNS: Temperature is 97.9, heart rate is 83, respirations are 16, oxygen saturation 97% on 8 liters nasal cannula, blood pressure is 137/71. GENERALLY: He is an elderly man lying comfortably in bed. HEAD: Normocephalic, atraumatic. CARDIOVASCULAR: He is regular rate and rhythm. LUNGS: Diminished breath sounds at bilateral bases. ABDOMEN: Soft, nontender, nondistended. EXTREMITIES: Trace edema. VASCULAR: Diminished pulses. Inpatient cardiovascular medications reviewed. Laboratory data reviewed, shows a hemoglobin of 9.2, creatinine of 3.25. Telemetry monitoring revealed normal sinus rhythm. IMPRESSION 1. Rugcg-ob-cyoweeh systolic congestive heart failure. 2. Paroxysmal atrial fibrillation. 3. Bacteremia. 4. Sepsis. 5. Chronic kidney disease. RECOMMENDATIONS: The patient has improved respiratory status on current Lasix therapy. Continue to monitor urinary outputs and daily labs. Patient's blood pressure is well controlled on current regimen. Patient has currently normal sinus rhythm. Will avoid anticoagulation given recent hemoglobin of 6.9. Will continue to follow closely. Job#: [id number] KAT
[2018-01-16] MEDS: ATORVASTATIN 40 MG TAB PO SCH (21:39)
[2018-01-16] MEDS: TAMSULOSIN HCL 0.4 MG CAP PO SCH (21:39)
[2018-01-17] VITALS (11 sets, daily range): BP systolic 124–146; BP diastolic 67–88
[2018-01-17] MEDS: ALBUTEROL SULF 0.083% NEB SOLN 3 ML NEB NEB SCH ×4 (03:45→15:00)
[2018-01-17 05:15] LABS: BASOPHILS # (AUTO) 0.1 (0.0-0.1); BASOPHILS % 0.4 % (0.0-1.0); EOSINOPHILS # (AUTO) 0.7 (0.0-0.4); EOSINOPHILS % 6.1 % (0.0-6.0); HEMATOCRIT 26.4 % (38.2-49.6); HEMOGLOBIN 8.9 g/dL (14.0-18.0); LYMPHOCYTES # (AUTO) 2.2 (1.0-3.2); LYMPHOCYTES % 17.9 % (18.0-39.1); MEAN CORPUSCULAR HEMOGLOBIN 30.5 pg (28-32); MEAN CORPUSCULAR HGB CONC 33.7 g/dL (31-35); MEAN CORPUSCULAR VOLUME 90.4 fL (81-99); MONOCYTES # (AUTO) 1.6 (0.2-0.8); MONOCYTES % 13.5 % (4.4-11.3); NEUTROPHILS # (AUTO) 7.5 (2.1-6.9); NEUTROPHILS % 61.7 % (38.7-80.0); PLATELET COUNT 407 x10e3/uL (140-360); RED BLOOD COUNT 2.92 x10e6/uL (4.3-5.7); RED CELL DISTRIBUTION WIDTH 15.1 % (11.7-14.4)
[2018-01-17 05:33] LABS: ANION GAP 15.3 mmol/L (8-16); CALCIUM 9.8 mg/dL (8.4-10.2); CREATININE, SERUM 3.37 mg/dL (0.72-1.25); POTASSIUM 4.3 mmol/L (3.5-5.1)
[2018-01-17] MEDS: FUROSEMIDE INJ 10 MG/ML 4 ML VIAL IV SCH ×3 (05:35→21:12)
[2018-01-17] MEDS: LEVOTHYROXINE SODIUM 50 MCG TAB PO SCH (05:35)
[2018-01-17] MEDS: IPRATROPIUM BROMIDE 0.02% 2.5 ML NEB NEB SCH ×2 (07:12→13:00)
--- NOTE | 2018-01-17 07:23 | Progress Note ---
DATE: Patient comes in with anemia, sepsis, leukocytosis, congestive heart failure, and urinary retention. Patient is currently doing well. Did some physical therapy with therapist yesterday. Had a bowel movement. No chest pain. No shortness of breath. No vomiting or diarrhea. Very, very weak according to the patient. OBJECTIVE VITAL SIGNS: Temperature is 97.5, pulse of 66, respirations of 18, blood pressure is 127/69, pulse ox 100% on nasal cannula. The patient used BiPAP some yesterday. HEENT: Normocephalic and atraumatic. There is a right parietal hematoma, which is resolving. LUNGS: Positive for crackles in the lung bases. ABDOMEN: Nontender and nondistended. CARDIOVASCULAR: S1 and S2 normal. Regular rate and rhythm. EXTREMITIES: No clubbing. No cyanosis. No edema. MICROBIOLOGY: E. species and E. coli as mentioned. LABORATORY VALUES: Initial white count was 12, hemoglobin is 8.9, hematocrit of 26.4, which is stable. ASSESSMENT 1. Congestive heart failure, slkfa-dy-qdwjipp: Continue with diuresis. The patient has diuresed well. Will continue on intravenous flow rate now. 2. Sepsis: The patient is on Merrem and also on fluconazole for his yeast infection. 3. Hypertension: Continue with cardiovascular medication. 4. Congestive heart failure: Continue with cardiovascular medications. 5. Urinary retention: Will keep the Servin in. 6. Anemia: Status post transfusion. Will continue to monitor the patient. 7. Debility: The patient has improved medically, but needs physical medicine rehabilitation. For this, will go ahead and order LTAC, which will benefit him. Will continue to follow the patient along with the consultants. The patient also has Dr. Meredith and Dr. Gandhi on the case for chronic kidney disease and urinary retention. Job#: [id number] [place]
[2018-01-17 07:29] LABS: NEUTROPHILS % (MANUAL) 55 % (40-74)
[2018-01-17 07:30] LABS: BAND NEUTROPHILS % (MANUAL) 2 %; EOSINOPHILS % (MANUAL) 8 % (0-7); LYMPHOCYTES % (MANUAL) 15 % (19-48); MONOCYTES % (MANUAL) 20 % (3.4-9.0)
[2018-01-17 07:34] LABS: ANISOCYTOSIS SLIGHT; HYPOCHROMASIA SLIGHT
[2018-01-17 07:35] LABS: PLATELET ESTIMATE SLIGHTLY INCREASED; PLATELET MORPHOLOGY COMMENT NORMAL; RBC MORPHOLOGY COMMENT NORMAL
[2018-01-17] MEDS: ISOSORBIDE MONONITRATE 30 MG TAB CR PO SCH (09:00)
[2018-01-17] MEDS: FLUOXETINE HCL 20 MG CAP PO SCH (10:11)
[2018-01-17] MEDS: PANTOPRAZOLE SOD 40 MG TABEC PO SCH (10:12)
[2018-01-17] MEDS: HYDRALAZINE HCL 25 MG TAB PO SCH ×2 (10:15→17:20)
[2018-01-17] MEDS: METOPROLOL TARTRATE 25 MG TAB PO SCH ×2 (10:16→17:20)
[2018-01-17] MEDS: CLONIDINE HCL 0.1 MG TAB PO SCH ×2 (10:16→17:20)
[2018-01-17] MEDS: CALCITRIOL 0.25 MCG CAP PO SCH (10:17)
[2018-01-17] MEDS: RANOLAZINE 500 MG TABSR PO SCH ×2 (10:18→17:21)
[2018-01-17] MEDS: NIFEDIPINE CR 30 MG TAB PO SCH ×2 (10:19→17:21)
[2018-01-17] MEDS: MEROPENEM 500MG 500 MG in SODIUM CHLORIDE 0.9% 50ML 50 ML IV SCH ×2 (10:22→20:28)
[2018-01-17] MEDS: FLUCONAZOLE 100 MG/NS 50 ML 50 ML IV SCH (11:17)
--- NOTE | 2018-01-17 15:48 | Progress Note ---
DATE: January 17, 2018 SUBJECTIVE: The patient overall feels better. Denies any chest pain. His breathing status has improved. OBJECTIVE VITAL SIGNS: Temperature is 98.5, heart rate is 79, respirations are 20, blood pressure is 140/77, oxygen saturation 95% on 4 L nasal cannula. GENERAL: He is a chronically ill-appearing elderly man lying comfortably in bed. NECK: No jugular venous distention. CARDIOVASCULAR: Regular rate and rhythm. LUNGS: Diminished breath sounds. ABDOMEN: Soft and nontender. EXTREMITIES: Trace edema. NEUROLOGIC: No focal deficits noted. CARDIOVASCULAR MEDICATIONS: Reviewed. LABORATORY DATA: Reviewed. Hemoglobin 8.9. Creatinine 3.37. IMPRESSION 1. Fcmvw-mw-gidlpur systolic congestive heart failure. 2. Paroxysmal atrial fibrillation. 3. Bacteremia. 4. Sepsis. 5. Chronic kidney disease. RECOMMENDATIONS: The patient continues to improve daily. Continue intravenous Lasix for diuresis. Will continue to monitor his urinary output and daily labs closely. Otherwise, the patient is stable from a cardiovascular standpoint. Continue current cardiovascular medications. The patient is in normal sinus rhythm. Will avoid anticoagulation at this point in time given recent acute anemia of a hemoglobin of 6.9 requiring blood transfusion. Job#: [id number] SARA
[2018-01-17] MEDS: TAMSULOSIN HCL 0.4 MG CAP PO SCH (20:28)
[2018-01-17] MEDS: ATORVASTATIN 40 MG TAB PO SCH (20:29)
[2018-02-12] MEDS ORDERED: NEPRO CARB STE237 ML PO (09:19)
[2018-02-12] MEDS ORDERED: HEPARIN SO1000 UNIT/ IV (09:19)
[2018-02-12] MEDS ORDERED: ARANESP100 MCG/0. SC (09:19)
[2018-02-12] MEDS ORDERED: LORAZEPAM2 MG/1 M1 IVP (09:19)
[2018-02-12] MEDS ORDERED: ONDANSETRON2 MG/1 ML IV (09:19)
[2018-02-12] MEDS ORDERED: LACTULOSE20 GM/30 M PO (09:19)
[2018-02-12] MEDS ORDERED: ACETAMINOPHEN325 M1 PO (09:19)
[2018-02-12] MEDS ORDERED: ASPIR 8181 MG PO (09:19)
[2018-02-12] MEDS ORDERED: HYDRALAZIN20 MG/1 ML IV (09:19)
[2018-02-12] MEDS ORDERED: ALBUTEROL0.63 MG/3 IH (09:19)
[2018-02-12] MEDS ORDERED: IPRATROPIU0.2 MG/1 M NEB (09:19)
[2018-02-12] MEDS ORDERED: MERREM500 MG IV (09:19)
== END 2018-01-17 21:45 | DRG 871 ==
LOC: ER 05:42 → ERHOLD 08:55 → ICU 14:15 → IMCU 01-15 16:25
PROVIDERS: ADMIT Family Medicine; ATTEND Family Medicine
PROC: 30233N1 Transfusion of Nonautologous Red Blood Cells into Peripheral Vein, Percutaneous Approach (ICD-10-PCS; principal; 2018-01-12)
DX: A41.9 Sepsis, unspecified organism (principal); I50.23 Acute on chronic systolic (congestive) heart failure; J18.9 Pneumonia, unspecified organism; J96.00 Acute respiratory failure, unspecified whether with hypoxia or hypercapnia; E87.1 Hypo-osmolality and hyponatremia; N39.0 Urinary tract infection, site not specified; I13.0 Hypertensive heart and chronic kidney disease with heart failure and stage 1 through stage 4 chronic kidney disease, or unspecified chronic kidney disease; N18.4 Chronic kidney disease, stage 4 (severe); E78.5 Hyperlipidemia, unspecified; I27.20 Pulmonary hypertension, unspecified; F32.9 Major depressive disorder, single episode, unspecified; E03.9 Hypothyroidism, unspecified; E83.41 Hypermagnesemia; N40.1 Benign prostatic hyperplasia with lower urinary tract symptoms; R33.8 Other retention of urine; Z85.46 Personal history of malignant neoplasm of prostate; B96.20 Unspecified Escherichia coli [E. coli] as the cause of diseases classified elsewhere; Z16.12 Extended spectrum beta lactamase (ESBL) resistance; D63.1 Anemia in chronic kidney disease; I25.10 Atherosclerotic heart disease of native coronary artery without angina pectoris; I48.91 Unspecified atrial fibrillation; Z79.01 Long term (current) use of anticoagulants; R79.1 Abnormal coagulation profile; T45.515A Adverse effect of anticoagulants, initial encounter; R65.20 Severe sepsis without septic shock
CPT/HCPCS: 36415; 36600; 51700; 70450; 71045; 80048; 80053; 80061; 80202; 81001; 82270; 82550; 82553; 82805; 83540; 83605; 83735; 83880; 84443; 84466; 84484; 85025; 85610; 85730; 86850; 86900; 86920; 87040; 87070; 87086; 87186; 87205; 93005; 93306; 94640; 94660; 96361; 96366; 97139; 99285; J1450; J1940; J2185; J2270; J3370; J3430; J7050; P9016

== ENCOUNTER → 2018-02-12 | Day surgery (SDC) | payer MEDICARE, BC ==
[~2018-02-12] VITALS: Ht 177.8 cm; Wt 65.8 kg
[~2018-02-12] MED LIST changes: +ACETAMINOPHEN325 M1 PO; +ALBUTEROL0.63 MG/3 IH; +ARANESP100 MCG/0. SC; +ASPIR 8181 MG PO; +CALCITRIOL0.5 MCG PO; +FENTANYL CITRATE/PF 100MCG/2 ML INJ ONE; +FLUOXETINE HCL40 MG PO; +GEODON20 M1 IV; +HEPARIN SO1000 UNIT/ IV; +HEPARIN SOD (PORCINE) 1000 UNIT/ML 30ML ONE; +HYDRALAZIN20 MG/1 ML IV; +IPRATROPIU0.2 MG/1 M NEB; +LACTULOSE20 GM/30 M PO; +LIDOCAINE HCL 1% LOCAL INJ 20 ML VIAL ONE; +LORAZEPAM2 MG/1 M1 IVP; +MERREM500 MG IV; +MIDAZOLAM HCL 2 MG/2 ML VIAL ONE; +MYRBETRIQ50 MG PO; +NEPRO CARB STE237 ML PO; +OMEPRAZOLE40 MG PO; +ONDANSETRON2 MG/1 ML IV; +RENA-VITE TABL0.8 MG PO; +SODIUM CHLORIDE 0.9% 500ML 1,000 ML ONE
[2018-02-12 08:30] VITALS: BP 156/81
[2018-02-12 10:29] LABS: INR 0.97; PROTHROMBIN TIME 13.8 seconds (11.9-14.5)
[2018-02-12 11:40] VITALS: BP 173/91
[2018-02-12 12:10] VITALS: BP 154/89
[2018-02-12 12:40] VITALS: BP 160/88
[2018-02-12 13:05] VITALS: BP 160/88
--- NOTE | 2018-02-14 09:33 | Diagnostic Imaging Report ---
PROCEDURE: PLACEMENT OF RIGHT IJ TUNNELED HEMODIALYSIS CATHETER INDICATION: Need for dialysis access. OPERATORS: Moses Aguirre MD RADIATION EXPOSURE: Fluoroscopy Time: 0.9 minutes Dose area product (DAP): 132.7 cGycm2 CONSENT: The patient was informed of the nature of the proposed procedure. The purposes, alternatives, risks, and benefits were explained and discussed. All questions were answered and written consent was obtained. ANESTHESIA: Local MEDICATIONS: 15 cc of 1% subcutaneous lidocaine TECHNIQUE: The patient was brought to the angiography suite, and the right neck and upper chest were prepped and draped in standard sterile fashion. All elements of maximal sterile barrier technique were followed including cap and mask, sterile gown, sterile gloves, large sterile sheet, hand hygiene and 2% chlorhexidine for cutaneous antisepsis. Pre-procedure time-out confirmed the patient identity and the procedure to be performed. Ultrasound demonstrated that the right internal jugular was patent and compressible. Using standard sterile technique, 1 % lidocaine was administered subcutaneously for local anesthesia. Under continuous sonographic guidance, the right internal jugular vein was accessed using a 21 G micropuncture needle. The access needle was exchanged for a 5 Fr micropuncture sheath. An 0.035'' Amplatz wire was advanced into the IVC to secure access. The venotomy site was dilated. Appropriate measurements were made using the 8 Fr dilator. Attention was then turned towards the subcutaneous tunnel. After administration of 1% lidocaine subcutaneously for local anesthesia, a 16 Fr x 23 cm Hemosplit hemodialysis catheter was tunneled in an antegrade direction from skin exit site to venotomy site. The dilator was exchanged for the peel-away sheath under direct fluoroscopic visualization. The catheter was then advanced through the peel-away sheath into the superior vena cava. After confirming appropriate position with fluoroscopy the catheter tip in the right atrium, the peel-away sheath was removed, and both lumens aspirated, check flushed, and terminally flushed with 2 cc each of heparin solution (1000 units/cc of heparin). The catheter was secured using 3-0 Ethilon pursestring suture at the catheter exit site and also 3-0 Ethilon sutures at the catheter hub. The venotomy site was closed with subcutaneous Vicryl suture, Dermabond, and steri-strips. Sterile dressings were applied. The patient tolerated the procedure well without immediate complication. FINDINGS: 1. Patent and compressible right IJV accessed with continuous ultrasound guidance. 2. Placement of 16 Fr x 23 cm tunneled right IJV hemodialysis catheter. 3. Post-procedure intraprocedural chest radiograph showed the catheter tip at the cavoatrial junction, no kinks along course of catheter, and no pneumothorax. Catheter is ready for use. IMPRESSION: Placement of right IJ tunneled hemodialysis catheter. Catheter is ready for immediate use. Signed by: Dr. Moses Aguirre MD on 02/13/2018 7:41 AM
== END | disposition home or self-care (01) ==
LOC: CATH LAB 08:35 → EDSTATUS 11:00
PROVIDERS: ATTEND Radiology Diagnostic Radiology
DX: Z49.01 Encounter for fitting and adjustment of extracorporeal dialysis catheter (principal); N18.9 Chronic kidney disease, unspecified; I50.9 Heart failure, unspecified; J44.9 Chronic obstructive pulmonary disease, unspecified
CPT/HCPCS: 36415; 36558; 85610; J1644; J2001; J2250; J7040

== ENCOUNTER 2018-02-21 15:23 | Inpatient (IN) | payer MEDICARE, BC ==
[~2018-02-21] VITALS: Ht 177.8 cm; Wt 61.0 kg
[~2018-02-21 15:23] MED LIST changes: -FENTANYL CITRATE/PF 100MCG/2 ML INJ ONE; -GEODON20 M1 IV; -HEPARIN SOD (PORCINE) 1000 UNIT/ML 30ML ONE; -LIDOCAINE HCL 1% LOCAL INJ 20 ML VIAL ONE; -MIDAZOLAM HCL 2 MG/2 ML VIAL ONE; -OMEPRAZOLE40 MG PO; -SODIUM CHLORIDE 0.9% 500ML 1,000 ML ONE
[2018-02-21 16:56] LABS: CLARITY,URINE HAZY (CLEAR); COLOR,URINE YELLOW (YELLOW)
[2018-02-21 16:57] LABS: BILIRUBIN,URINE 1+ (NEGATIVE); KETONES,URINE TRACE (NEGATIVE); LEUKOCYTE ESTERASE ,URINE TRACE (NEGATIVE); NITRITE,URINE NEGATIVE (NEGATIVE); PROTEIN,URINE DIPSTICK 3+ (NEGATIVE); URINE UROBILINOGEN 0.2 mg/dL (0.2 - 1)
[2018-02-21 16:59] LABS: BACTERIA,URINE MANY /HPF; EPITHELIAL CELLS,URINE MODERATE /LPF; WBC,URINE (MAN) >50 /HPF (0-5)
--- NOTE | 2018-02-21 17:50 | NUR ---
DR TRIPLETT WITH PT FOR BLADDER SCAN; WILL INSERT # 18 SMITH
--- NOTE | 2018-02-21 18:45 | NUR ---
TRYING FOR 18 SMITH WITHOUT SUCCESS; AMANDA BLOOD TRIED WITH A 16; HE WILL CALL DR HERNANDEZ ABOUT NO SMITH
--- NOTE | 2018-02-21 19:01 | NUR ---
185 ENDORSED TO TAI BAXTER
[2018-02-21] MEDS ORDERED: SODIUM CHLORIDE FLUSH 10 ML SYR INJ PRN (19:15)
--- NOTE | 2018-02-21 19:20 | NUR ---
ATTEMPTED TO INSERT 16 FR COUDE CATHETER PER COLOR DEVELOPER REQUEST. UNABLE TO INSERT SMITH CATHETER AT THIS TIME.
[2018-02-21 19:28] LABS: BASOPHILS # (AUTO) 0.1 (0.0-0.1); BASOPHILS % 0.6 % (0.0-1.0); EOSINOPHILS # (AUTO) 0.1 (0.0-0.4); EOSINOPHILS % 0.9 % (0.0-6.0); HEMATOCRIT 28.1 % (38.2-49.6); HEMOGLOBIN 8.8 g/dL (14.0-18.0); LYMPHOCYTES # (AUTO) 1.9 (1.0-3.2); LYMPHOCYTES % 18.7 % (18.0-39.1); MEAN CORPUSCULAR HEMOGLOBIN 29.7 pg (28-32); MEAN CORPUSCULAR HGB CONC 31.3 g/dL (31-35); MEAN CORPUSCULAR VOLUME 94.9 fL (81-99); MONOCYTES # (AUTO) 1.4 (0.2-0.8); MONOCYTES % 14.4 % (4.4-11.3); NEUTROPHILS # (AUTO) 6.5 (2.1-6.9); NEUTROPHILS % 65.2 % (38.7-80.0); PLATELET COUNT 306 x10e3/uL (140-360); RED BLOOD COUNT 2.96 x10e6/uL (4.3-5.7); RED CELL DISTRIBUTION WIDTH 15.1 % (11.7-14.4)
[2018-02-21 19:42] LABS: ANION GAP 14.4 mmol/L (8-16); CALCIUM 9.5 mg/dL (8.4-10.2); CREATININE, SERUM 3.81 mg/dL (0.72-1.25); POTASSIUM 3.4 mmol/L (3.5-5.1)
[2018-02-21] MEDS: CEFTRIAXONE SOD 1 GM/NS 50 ML 50 ML IV SCH (19:58)
[2018-02-21] MEDS ORDERED: GEODON20 M1 IV (22:11)
[2018-02-21] MEDS ORDERED: OMEPRAZOLE40 MG PO (22:11)
[2018-02-21] MEDS ORDERED: LACTULOSE SYRUP 20 GM/30 ML UDC PO PRN (22:45)
[2018-02-21] MEDS ORDERED: ACETAMINOPHEN 325 MG TAB PO PRN (22:45)
[2018-02-21 23:00] VITALS: BP 134/70
[2018-02-21 23:11] VITALS: BP 152/74
--- NOTE | 2018-02-21 23:20 | NUR ---
Patient received via stretcher from ER. Admission history (obtained from chart) and Initial Physical assessment completed. Patient is AAO x 3. No complaints of pain. No signs of respiratory distress. Patient oriented to room, call light and plan of care. Bed locked and in lowest position. Bed rails up x 2. Bed alarm activated. Patient instructed to call for assistance when needed. Call light within reach.
[2018-02-22] MEDS: ALBUTEROL SULF 0.083% NEB SOLN 3 ML NEB INH SCH ×6 (02:00→22:00)
[2018-02-22 04:00] VITALS: BP 154/85
--- NOTE | 2018-02-22 05:10 | NUR ---
Urology cart at bedside as ordered.
--- NOTE | 2018-02-22 05:58 | NUR ---
Dr. Jose Meredith paged for " Routine Consult" . Awaiting call back.
[2018-02-22] MEDS: IPRATROPIUM BROMIDE 0.02% 2.5 ML NEB NEB SCH ×4 (07:20→18:00)
[2018-02-22] MEDS ORDERED: LORAZEPAM 1 MG TAB PO STA (07:32)
--- NOTE | 2018-02-22 07:33 | NUR ---
Pt is having an anxiety attack; Dr. Vicente made aware. Orders rec'd.
[2018-02-22 08:00] VITALS: BP 168/89
[2018-02-22] MEDS ORDERED: FLUOXETINE HCL 40 MG PO SCH (09:00)
[2018-02-22] MEDS: CALCITRIOL 0.5 MCG CAP PO SCH ×2 (09:00→09:38)
[2018-02-22 09:37] VITALS: BP 168/89
[2018-02-22] MEDS: ISOSORBIDE MONONITRATE 20 MG TAB PO SCH (09:37)
[2018-02-22] MEDS: ASPIRIN 81 MG CHEW TAB PO SCH (09:37)
[2018-02-22] MEDS: FLUOXETINE HCL 20 MG CAP PO SCH (09:38)
[2018-02-22] MEDS: PANTOPRAZOLE SOD 40 MG TABEC PO SCH (09:38)
[2018-02-22] MEDS: METOPROLOL TARTRATE 25 MG TAB PO SCH ×2 (09:38→17:00)
[2018-02-22] MEDS: RANOLAZINE 500 MG TABSR PO SCH ×2 (09:38→17:00)
[2018-02-22] MEDS: LEVOTHYROXINE SODIUM 50 MCG TAB PO SCH (09:38)
--- NOTE | 2018-02-22 10:29 | NUR ---
Patient is a Tu//Sat HD @ [facility]. Attempted to call three times to find out the renal physician. No answer; no answering service; no option to leave message. Dr. Vicente made aware; Orders rec'd to consult Dr. Núñez.
--- NOTE | 2018-02-22 11:30 | NUR ---
Dr. Gandhi is the patient's renal physician. Will inform Dr. Vicente & Dr. Lee, who is covering for Dr. Núñez.
--- NOTE | 2018-02-22 12:05 | NUR ---
Dr. Gandhi notified of new consult. Per Dr. Gandhi, let dialysis nurse know to call him for orders.
[2018-02-22 12:17] VITALS: BP 149/88
[2018-02-22 12:47] LABS: ALBUMIN 2.6 g/dL (3.5-5.0); ALBUMIN/GLOBULIN RATIO 0.9 (0.8-2.0); ANION GAP 15.9 mmol/L (8-16); CALCIUM 9.4 mg/dL (8.4-10.2); CREATININE, SERUM 4.69 mg/dL (0.72-1.25); POTASSIUM 3.9 mmol/L (3.5-5.1)
[2018-02-22 13:24] LABS: BASOPHILS # (AUTO) 0.1 (0.0-0.1); BASOPHILS % 0.5 % (0.0-1.0); EOSINOPHILS # (AUTO) 0.1 (0.0-0.4); EOSINOPHILS % 0.5 % (0.0-6.0); HEMATOCRIT 27.9 % (38.2-49.6); HEMOGLOBIN 8.8 g/dL (14.0-18.0); LYMPHOCYTES # (AUTO) 1.3 (1.0-3.2); LYMPHOCYTES % 10.4 % (18.0-39.1); MEAN CORPUSCULAR HEMOGLOBIN 29.6 pg (28-32); MEAN CORPUSCULAR HGB CONC 31.5 g/dL (31-35); MEAN CORPUSCULAR VOLUME 93.9 fL (81-99); MONOCYTES # (AUTO) 1.6 (0.2-0.8); MONOCYTES % 12.3 % (4.4-11.3); NEUTROPHILS # (AUTO) 9.8 (2.1-6.9); PLATELET COUNT 332 x10e3/uL (140-360); RED BLOOD COUNT 2.97 x10e6/uL (4.3-5.7)
[2018-02-22 14:11] LABS: LYMPHOCYTES % (MANUAL) 5 % (19-48); MONOCYTES % (MANUAL) 11 % (3.4-9.0); NEUTROPHILS % (MANUAL) 84 % (40-74); PLATELET MORPHOLOGY COMMENT NORMAL; RBC MORPHOLOGY COMMENT NORMAL
[2018-02-22 14:12] LABS: PLATELET ESTIMATE SLIGHTLY INCREASED
[2018-02-22 16:49] VITALS: BP 151/90
--- NOTE | 2018-02-22 18:37 | NUR ---
Call placed to patients spouse, Leticia. Asked Leticia to come up and sit with the patient because the patient is confused and agitated. Per Spouse, Leticia, she will be up to the hospital. Bed alarm activated, dialysis nurse at bedside.
--- NOTE | 2018-02-22 18:53 | NUR ---
Patient confused and disoriented. Day shift called who states she will come sit with him overnight. Dialysis at bedside.
--- NOTE | 2018-02-22 19:31 | NUR ---
Dialysis nurse called Dr. Gandhi and got ok to reschedule dialysis for Saturday.
[2018-02-22] MEDS ORDERED: LORAZEPAM INJ 2 MG/ML VIAL IV PRN ×2 (19:45→20:00)
[2018-02-22] MEDS ORDERED: SODIUM CHLORIDE 0.9% 250ML 250 ML ONE (20:02)
[2018-02-22] MEDS: CEFTRIAXONE SOD 1 GM/NS 50 ML 50 ML IV SCH (20:19)
[2018-02-22] MEDS: TAMSULOSIN HCL 0.4 MG CAP PO SCH (20:19)
[2018-02-22] MEDS: ATORVASTATIN 40 MG TAB PO SCH (20:20)
[2018-02-22] MEDS: AMPICILLIN SOD 1 GM/NS 50ML 50 ML IV SCH (20:20)
[2018-02-22] MEDS ORDERED: NON-FORMULARY MEDICATION (Atorvastatin Calcium (Lipitor) 40 MG) PO SCH (21:00)
[2018-02-23] VITALS (7 sets, daily range): BP systolic 127–152; BP diastolic 77–99
[2018-02-23] MEDS: ALBUTEROL SULF 0.083% NEB SOLN 3 ML NEB INH SCH ×6 (02:00→22:00)
[2018-02-23] MEDS ORDERED: LORAZEPAM INJ 2 MG/ML VIAL IV PRN (07:00)
[2018-02-23] MEDS: IPRATROPIUM BROMIDE 0.02% 2.5 ML NEB NEB SCH ×4 (07:15→18:00)
--- NOTE | 2018-02-23 08:48 | Consultation ---
DATE OF CONSULTATION: February 23, 2018 RENAL CONSULTATION ADMITTING PHYSICIAN: Dr. Dion Vicente REASON FOR CONSULTATION: End-stage renal disease. HISTORY OF PRESENT ILLNESS: An 82-year-old male with end-stage renal disease on hemodialysis Saturday, , and Saturday, was brought to [facility] for altered mental status. The patient has been at long term after a long hospitalization in January and started doing therapy according to and was progressing well. On the day of admission, the patient pulled out his Servin catheter, has remained agitated and confused. He was started on antibiotics and Nephrology consultation was called. The patient wanted to get hemodialysis on February 22, 2018; however, he was confused and refused. This morning the patient recognizes me, but is unable to give any further history. REVIEW OF SYSTEMS: As above. All other systems negative. PAST MEDICAL HISTORY 1. End-stage renal disease, on hemodialysis Saturday, , and Saturday. 2. Hypertension. 3. Congestive heart failure. 4. Pulmonary hypertension. 5. History of prostate cancer with brachytherapy in the past. 6. Dyslipidemia. 7. Depression. 8. Hypothyroidism. 9. BPH. PAST SURGICAL HISTORY 1. Brachytherapy for prostate cancer. 2. Cataract surgery. 3. Tunneled dialysis catheter. SOCIAL HISTORY: No tobacco. No alcohol. No IV drugs. He is currently in a long term. FAMILY HISTORY: Noncontributory. ALLERGIES: CODEINE. CURRENT MEDICATIONS: See list. PHYSICAL EXAMINATION VITAL SIGNS: Blood pressure 124/83, pulse 72, temperature 97.7, respiratory rate 18. GENERAL: In no apparent distress. HEENT: Oropharynx is clear. No scleral icterus. No periorbital edema. NECK: Supple. No elevation of jugular venous pressure. No lymphadenopathy. CHEST: Clear to auscultation anteriorly bilaterally. CARDIOVASCULAR: Regular rhythm. ABDOMEN: Soft. Positive bowel sounds. No tenderness. No rebound. EXTREMITIES: No edema. No clubbing. No cyanosis. SKIN: Warm. LABS: White count 12.9, hemoglobin 8.9, hematocrit 26.4, platelets 407. Sodium 138, potassium 3.9, chloride 101; CO2 of 25, BUN 23; creatinine 4.69, albumin 2.6. Urinalysis greater than 50 wbcs, many bacteria, 3+ protein, 4+ blood. White count 12.87, hemoglobin 8.8, hematocrit 27.9, and platelets 332. ASSESSMENT AND PLAN 1. End-stage renal disease. We will plan for hemodialysis in the morning, no urgent indication to do it today. The patient was confused last night and declined. 2. Anemia secondary to chronic kidney disease. We will start patient on Epogen. 3. Pyuria. Urine culture preliminary with enterococcus. Continue antibiotics, wait for sensitivities. 4. Congestive heart failure, compensated. 5. Electrolytes acceptable. 6. Metabolic encephalopathy secondary to urinary tract infection. Job#: [id number] CATHLEEN
[2018-02-23] MEDS: ASPIRIN 81 MG CHEW TAB PO SCH (08:54)
[2018-02-23] MEDS: FLUOXETINE HCL 20 MG CAP PO SCH (08:54)
[2018-02-23] MEDS: ISOSORBIDE MONONITRATE 20 MG TAB PO SCH (08:54)
[2018-02-23] MEDS: RANOLAZINE 500 MG TABSR PO SCH ×2 (08:54→16:04)
[2018-02-23] MEDS: LEVOTHYROXINE SODIUM 50 MCG TAB PO SCH (08:54)
[2018-02-23] MEDS: PANTOPRAZOLE SOD 40 MG TABEC PO SCH (08:54)
[2018-02-23] MEDS: METOPROLOL TARTRATE 25 MG TAB PO SCH ×2 (08:54→16:03)
[2018-02-23] MEDS: AMPICILLIN SOD 1 GM/NS 50ML 50 ML IV SCH ×2 (08:54→21:53)
[2018-02-23] MEDS: CALCITRIOL 0.25 MCG CAP PO SCH (08:56)
--- NOTE | 2018-02-23 16:51 | NUR ---
post void residual 49 ml with bladder scan, no new orders
--- NOTE | 2018-02-23 19:30 | NUR ---
Patient very angry, refusing vitals and medications. arrived and at bedside. Will continue to monitor.
[2018-02-23] MEDS: TAMSULOSIN HCL 0.4 MG CAP PO SCH (20:05)
[2018-02-23] MEDS: ATORVASTATIN 40 MG TAB PO SCH (20:05)
[2018-02-23] MEDS: QUETIAPINE FUMARATE 25 MG TAB PO PRN (20:06)
--- NOTE | 2018-02-23 21:48 | NUR ---
Patient remains restless and confused. at bedside and patient took PM medications and allowed vital signs to be taken. IV abx are running as well. Will continue to monitor.
[2018-02-23] MEDS: CEFTRIAXONE SOD 1 GM/NS 50 ML 50 ML IV SCH (21:53)
[2018-02-24] MEDS: ALBUTEROL SULF 0.083% NEB SOLN 3 ML NEB INH SCH ×6 (02:00→22:00)
[2018-02-24 03:16] VITALS: BP 137/78
[2018-02-24 05:28] LABS: BASOPHILS % 0.3 % (0.0-1.0); EOSINOPHILS # (AUTO) 0.1 (0.0-0.4); EOSINOPHILS % 0.7 % (0.0-6.0); HEMATOCRIT 25.4 % (38.2-49.6); HEMOGLOBIN 8.1 g/dL (14.0-18.0); LYMPHOCYTES # (AUTO) 1.2 (1.0-3.2); LYMPHOCYTES % 10.3 % (18.0-39.1); MEAN CORPUSCULAR HEMOGLOBIN 29.2 pg (28-32); MEAN CORPUSCULAR HGB CONC 31.9 g/dL (31-35); MEAN CORPUSCULAR VOLUME 91.7 fL (81-99); MONOCYTES # (AUTO) 1.5 (0.2-0.8); MONOCYTES % 12.7 % (4.4-11.3); NEUTROPHILS # (AUTO) 9.1 (2.1-6.9); NEUTROPHILS % 75.7 % (38.7-80.0); PLATELET COUNT 303 x10e3/uL (140-360); RED BLOOD COUNT 2.77 x10e6/uL (4.3-5.7); RED CELL DISTRIBUTION WIDTH 14.7 % (11.7-14.4)
[2018-02-24 05:49] LABS: ANION GAP 19.6 mmol/L (8-16); CALCIUM 9.3 mg/dL (8.4-10.2); PHOSPHORUS 5.6 MG/DL (2.3-4.7); POTASSIUM 4.6 mmol/L (3.5-5.1)
[2018-02-24] MEDS: CIPROFLOXACIN 400 MG/D5W 200ML 200 ML IV SCH ×2 (06:25→17:45)
--- NOTE | 2018-02-24 06:40 | NUR ---
rounded with night patrol inspector nurse, patient aware of change. Patient in no distress, call lundberg within reach, bed alarm on and bed in lowest position.
[2018-02-24] MEDS: IPRATROPIUM BROMIDE 0.02% 2.5 ML NEB NEB SCH ×4 (07:10→19:00)
[2018-02-24 07:20] VITALS: BP 135/90
[2018-02-24] MEDS ORDERED: EPOETIN ALFA 10000 UNIT/ML VIAL SC SCH (08:00)
[2018-02-24] MEDS: METOPROLOL TARTRATE 25 MG TAB PO SCH ×2 (09:00→17:10)
[2018-02-24] MEDS: PANTOPRAZOLE SOD 40 MG TABEC PO SCH (09:00)
[2018-02-24] MEDS: LEVOTHYROXINE SODIUM 50 MCG TAB PO SCH (09:00)
[2018-02-24] MEDS: FLUOXETINE HCL 20 MG CAP PO SCH (09:00)
[2018-02-24] MEDS: ASPIRIN 81 MG CHEW TAB PO SCH (09:50)
[2018-02-24] MEDS: CALCITRIOL 0.25 MCG CAP PO SCH (09:50)
[2018-02-24] MEDS: AMPICILLIN SOD 1 GM/NS 50ML 50 ML IV SCH ×2 (09:50→21:30)
[2018-02-24] MEDS: ISOSORBIDE MONONITRATE 20 MG TAB PO SCH (09:50)
[2018-02-24] MEDS: RANOLAZINE 500 MG TABSR PO SCH ×2 (09:50→17:10)
--- NOTE | 2018-02-24 10:00 | NUR ---
Patient is refusing to take some of his medications, medications given as documented in eMAR. Patient refuses the rest of medications and does not want anymore today.
[2018-02-24 11:28] VITALS: BP 137/80
[2018-02-24 16:20] VITALS: BP 135/75
--- NOTE | 2018-02-24 17:30 | NUR ---
Bladder scanned patient due to lack of voiding more than one slightly damp diaper earlier today. Residual showed 88 mL.
--- NOTE | 2018-02-24 17:45 | NUR ---
report given to Mary for patient transfer to room 205. Patient and family aware of change, patient alert and reoriented. Vitals stable
--- NOTE | 2018-02-24 18:25 | NUR ---
received pt lying in bed with eyes open, Resp even and unlabored. AAOx2. at bedside. oriented to room and use of call light, call light placed within reach. instructed to call for assistance. bed alarm on, bed in lowest and locked position.
--- NOTE | 2018-02-24 19:25 | NUR ---
Completed bedside rounds with morning nurse. Pt alert to name, lying in bed 45 degrees. Family at bedside. No distress noted. Bed low and locked position.
[2018-02-24] MEDS: CEFTRIAXONE SOD 1 GM/NS 50 ML 50 ML IV SCH (20:00)
[2018-02-24] MEDS: QUETIAPINE FUMARATE 25 MG TAB PO PRN (20:15)
--- NOTE | 2018-02-24 20:15 | NUR ---
Pt c/o headache, 4/10 June-Villatoro scale, grimacing and restless. Admin acetaminophen 325mg 2 tabs PO and Seroquel 25mg with pudding. Pt tolerated well. VS stable, afebrile. No coughing, dizziness, diaphoresis, or SOB noted. O2 sat 95%. Family at bedside. Call lundberg within reach. Will continue to monitor.
[2018-02-24 20:21] VITALS: BP 127/84
[2018-02-24 20:45] VITALS: BP 127/84
[2018-02-24] MEDS ORDERED: SODIUM CHLORIDE 0.9% 250ML 250 ML ONE (21:05)
--- NOTE | 2018-02-24 21:45 | NUR ---
Pt lying quietly in bed with eyes closed. Resp even and unlabored. Call lundberg within reach. Family at bedside.
[2018-02-24] MEDS: ATORVASTATIN 40 MG TAB PO SCH (21:47)
[2018-02-24] MEDS: TAMSULOSIN HCL 0.4 MG CAP PO SCH (21:47)
[2018-02-25] MEDS: IPRATROPIUM BROMIDE 0.02% 2.5 ML NEB NEB SCH
--- NOTE | 2018-02-25 00:44 | NUR ---
Pt lying in bed eyes closed. Pt removed diaper. No grimacing or moaning noted. Resp even and unlabored. Vs stable, afebrile. No s/s of pain noted. Call lundberg within reach. Bed monitor on. Will continue to monitor.
[2018-02-25 01:28] VITALS: BP 119/83
[2018-02-25] MEDS: ALBUTEROL SULF 0.083% NEB SOLN 3 ML NEB INH SCH (02:00)
--- NOTE | 2018-02-25 04:25 | NUR ---
Called to room by PCT, stating Pt not breathing. Pt. found unresponsive in bed at 0424, no respirations, no pulse, unresponsive, apneic, and pulseless. Code called per full code status. Protocols followed for code response. pronounced by Dr. Dobbs at 0445. Dr. Cinthia HILL notified at 0450. Intubation tube and 20g IV in right FA in place. Postmortem care performed.
--- NOTE | 2018-02-25 04:55 | NUR ---
CALLED TO NOTIFY CHANGE OF STATUS. SAID SHE WOULD BE TO THE HOSPITAL RIGHT AWAY
--- NOTE | 2018-02-25 04:55 | NUR ---
spoke to life gift at time. . primary nurse made aware.
--- NOTE | 2018-02-25 06:06 | Discharge Summary ---
SUMMARY secondary to a myocardial infarction. HISTORY OF PRESENT ILLNESS: Patient is an 82-year-old gentleman with multiple comorbidities who presented to the hospital from the snf with Servin catheter malfunction, which he presented to the emergency room because he was supposed to have a postvoid residual. He was able to urinate on his own. The Servin catheter was not reinserted. He did have evidence of a urinary tract infection that grew out an organism for which he was on appropriate antibiotic therapy. During his hospitalization, he became very confused and agitated, but did require medication help. He also has a long history of end-stage renal disease, on dialysis. He was seen by the institute director here at the hospital. On the morning of his passing, the patient hemodynamically was doing okay, but was having still his issues with agitation and confusion. Was being checked on regularly by the staff. They noticed that when they went into the room he was having difficulties. He was unresponsive. Code blue was called, which they worked on the patient for approximately 30 minutes. But unfortunately, they were not able to resuscitate the patient. He was pronounced by the emergency room who ran the code. Most likely, the patient suffered a cardiac event secondary to his end-stage renal disease and COPD and other multiple comorbidities. Please see hospital chart for full details. LINDA FARIAS MD Job#: [id number] SARA
--- NOTE | 2018-02-25 07:30 | NUR ---
Pt is , family is at bedside. Waiting for home.
--- NOTE | 2018-02-25 10:00 | NUR ---
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 Family at the bedside at this time.
== END 2018-02-25 09:55 | disposition expired | DRG 698 ==
LOC: ER 15:23 → ERHOLD 19:32 → INTOOBSV 19:32 → IMCU 23:01 → OBSVTOIN 02-22 16:59 → MED/SURG2 02-24 18:20
PROVIDERS: ADMIT Internal Medicine; ATTEND Internal Medicine
PROC: 5A1945Z Respiratory Ventilation, 24-96 Consecutive Hours (ICD-10-PCS; principal; 2018-02-25)
PROC: 0BH17EZ Insertion of Endotracheal Airway into Trachea, Via Natural or Artificial Opening (ICD-10-PCS; 2018-02-25)
DX: T83.511A Infection and inflammatory reaction due to indwelling urethral catheter, initial encounter (principal); I50.43 Acute on chronic combined systolic (congestive) and diastolic (congestive) heart failure; I21.9 Acute myocardial infarction, unspecified; N18.6 End stage renal disease; G92 Toxic encephalopathy; I13.2 Hypertensive heart and chronic kidney disease with heart failure and with stage 5 chronic kidney disease, or end stage renal disease; Z99.2 Dependence on renal dialysis; D63.1 Anemia in chronic kidney disease; B95.2 Enterococcus as the cause of diseases classified elsewhere; R33.8 Other retention of urine; I48.91 Unspecified atrial fibrillation; Z85.46 Personal history of malignant neoplasm of prostate; Z85.51 Personal history of malignant neoplasm of bladder; K21.9 Gastro-esophageal reflux disease without esophagitis; Z88.5 Allergy status to narcotic agent; E78.5 Hyperlipidemia, unspecified; E03.9 Hypothyroidism, unspecified; T83.091A Other mechanical complication of indwelling urethral catheter, initial encounter
CPT/HCPCS: 31500; 36415; 80048; 80053; 81001; 82948; 84100; 85025; 86704; 86705; 86706; 86707; 87086; 87186; 87340; 92950; 94640; 99284; G0378; J0290; J0696; J2060; J7050; Q4081